=== PATIENT | male | born 1960 | race Caucasian/White ===

== ENCOUNTER → 2016-04-05 | Outpatient (CLI) | payer OTHER ==
[~2016-04-05] VITALS: Ht 172.7 cm; Wt 82.1 kg
[~2016-04-05] MED LIST: ACAM0.05 PO; AMLO10TA PO; CLONI1TA PO; FOLI1TAB2 PO; HYDR25T PO; LIDOCAINE 2% INJ 100 MG/5 ML SDV (FOR ANES.) As Ordered ONE; MELO15TA4 PO; MVI PO; NICO14DI20 TD; NICO21DI5 TD; NO HOME MEDS; NORV5TAB PO; NS 1,000 ML IV SCH; OXAZ15CA PO; PROPOFOL 200 MG/20 ML VIAL As Ordered ONE; SERAX PO; TRAM50TA2 PO; TYLE325T5 PO; Thiamine Hcl PO; VITA100T2 PO; VITMTA PO
--- NOTE | 2016-04-05 08:52 | ROOR ---
Patient Name: Jen Patiño Procedure Date: 04/05/2016 8:32 AM Date of : 1960 Age: 55 Room: [facility] [place] Gender: Male Note Status: Finalized Procedure: Colonoscopy to Cecum Indications: Screening for colorectal malignant neoplasm Providers: Yong Loyola MD Referring MD: COLT STORY NP Requesting Provider: Medicines: Monitored Anesthesia Care Complications: No immediate complications. Procedure: Pre-Anesthesia Assessment: - The heart rate, respiratory rate, oxygen saturations, blood pressure, adequacy of pulmonary ventilation, and response to care were monitored throughout the procedure. The Colonoscope was introduced through the anus and advanced to the cecum, identified by appendiceal orifice and ileocecal valve. The colonoscopy was performed without difficulty. The patient tolerated the procedure well. The quality of the bowel preparation was good. Findings: The perianal and digital rectal examinations were normal. Non-bleeding internal hemorrhoids were found during retroflexion. The hemorrhoids were Grade I (internal hemorrhoids that do not prolapse). No other significant abnormalities were identified in a careful examination of the remainder of the colon. The exam was otherwise without abnormality on direct and retroflexion views. Impression: - Non-bleeding internal hemorrhoids. - The examination was otherwise normal on direct and retroflexion views. - No specimens collected. - The exam was otherwise normal to the cecum. Recommendation: - Patient has a contact number available for emergencies. The signs and symptoms of potential delayed complications were discussed with the patient. Return to normal activities tomorrow. Written discharge instructions were provided to the patient. - Discharge patient to home. - Continue present medications. - Repeat colonoscopy in 10 years for screening purposes. - Return to referring physician. - The findings and recommendations were discussed with the patient's family. Yong Loyola MD Yong Loyola MD 04/05/2016 8:52:25 AM This report has been signed electronically. Number of Addenda: 0 Note Initiated On: 04/05/2016 8:32 AM Estimated Blood Loss: Estimated blood loss: none.
[2016-04-05 09:22] VITALS: BP 114/71
== END ==
LOC: M OPP 07:30
PROVIDERS: ATTEND Internal Medicine Gastroenterology
DX: Z12.11 Encounter for screening for malignant neoplasm of colon (principal); K64.0 First degree hemorrhoids; I10 Essential (primary) hypertension; Z85.828 Personal history of other malignant neoplasm of skin; Z72.0 Tobacco use; Z79.899 Other long term (current) drug therapy

== ENCOUNTER → 2016-06-22 | Outpatient (CLI) | payer OTHER ==
[~2016-06-22] MED LIST changes: -LIDOCAINE 2% INJ 100 MG/5 ML SDV (FOR ANES.) As Ordered ONE; -NS 1,000 ML IV SCH; -PROPOFOL 200 MG/20 ML VIAL As Ordered ONE
== END ==
LOC: M SMT 11:13
PROVIDERS: ATTEND Nurse Practitioner Women's Health
DX: Z12.5 Encounter for screening for malignant neoplasm of prostate (principal); N40.0 Benign prostatic hyperplasia without lower urinary tract symptoms
CPT/HCPCS: 36415; 81001; 87086; G0103

== ENCOUNTER → 2016-08-15 | Outpatient (CLI) | payer OTHER ==
--- NOTE | 2016-08-15 12:28 | REP ---
Clinical: Left testicular pain with history of prior left inguinal repair. Technique: Real time martines scale and color Doppler evaluation using linear high frequency transducer. Findings: Right testicle demonstrates a complex cyst in the lower pole measuring 4.5 mm maximal diameter with small foci of mural calcification. Left testicle appears normal. Left epididymis demonstrates 2.4 mm simple cyst. Right epididymis is normal. Small essentially nonsignificant hydroceles are identified bilaterally. There is a 2.1 cm complex cyst/collection superior to the left testicle in the inguinal canal which may be related to patient's symptoms and is otherwise nonspecific - possibly related to prior inguinal hernia repair. No acute hernia noted. No varicoceles. Right testicle measures 3.8 x 1.9 x 2.8 cm. Left testicle measures 3.4 x 1.8 x 2.8 cm. Impression: 1. With regards to left-sided pain, there is a complex 2.1 cm collection superior to the left testicle in the inguinal canal which may be related to prior inguinal hernia repair and possibly related to patient's symptoms. No other significant left-sided abnormalities are noted. 2. Right testicle demonstrates 4.5 mm complex lower pole intratesticular cyst with mural calcification. 3. And follow-up examination may be warranted for both above findings. Signed by Dieudonne Mobley MD 08/15/2016 12:19 P
== END ==
LOC: M RAD 11:12
PROVIDERS: ATTEND Nurse Practitioner Women's Health
DX: N50.812 Left testicular pain (principal); N50.3 Cyst of epididymis; N44.2 Benign cyst of testis

== ENCOUNTER → 2016-08-24 | Outpatient (CLI) | payer OTHER ==
[~2016-08-24] MED LIST changes: +BACI500O8 TOP; +DOXY100T16 PO; +DRIS50002 PO; +FLOM5CAP PO; +FOLI5INJ2 SC; +HYDR-3713 PO; +SENE8.6T PO; +ZOCO20TA PO
[2016-08-24 14:48] LABS: MEAN CORPUSCULAR HEMOGLOBIN 32.9 pg (27.0-33.0); MEAN CORPUSCULAR HGB CONC 35.2 g/dl (32.0-36.5); MEAN CORPUSCULAR VOLUME 93.4 fl (80.0-96.0); RED CELL DISTRIBUTION WIDTH 11.8 % (11.5-14.5); WHITE BLOOD COUNT 10.5 K/mm3 (4.0-10.0)
[2016-08-24 14:58] LABS: ANION GAP 8 MEQ/L (8-16); BLOOD UREA NITROGEN 14 MG/DL (7-18); CALCIUM LEVEL 8.6 MG/DL (8.5-10.1); CARBON DIOXIDE LEVEL 25 MEQ/L (21-32); CHLORIDE LEVEL 105 MEQ/L (98-107); CREATININE FOR GFR 0.84 MG/DL (0.70-1.30); GLOMERULAR FILTRATION RATE > 60.0 (>56); GLUCOSE, FASTING 89 MG/DL (70-105); POTASSIUM SERUM 4.5 MEQ/L (3.5-5.1); SODIUM LEVEL 138 MEQ/L (136-145)
== END ==
LOC: M LAB 13:50
PROVIDERS: ATTEND Podiatrist Foot & Ankle Surgery
DX: Z01.812 Encounter for preprocedural laboratory examination (principal)

== ENCOUNTER → 2016-09-05 | Outpatient (CLI) | payer OTHER ==
--- NOTE | 2016-09-05 16:31 | ECGEPIP ---
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
--- NOTE | 2016-09-06 05:23 | REP ---
Clinical: Chest pain with family history of heart disease. Technique: PA and lateral. Comparison: 09/23/2014. Findings: 12 mm density in the mid/lower left lung zone midclavicular line likely represents asymmetric nipple shadow. The lung hanley are otherwise stable and without acute consolidation, effusion, or pneumothorax. Mediastinum and cardiac silhouette normal. Skeletal structures demonstrate age-related degenerative changes and evidence for prior bilateral shoulder surgery. Impression: 1. Likely 12 mm left asymmetric nipple shadow less likely representing nodule. Consider reevaluation with nipple markers if necessary. 2. Further chronic changes without acute process. Signed by Dieudonne Mobley MD 09/06/2016 05:14 A
== END ==
LOC: M EKG 15:10
PROVIDERS: ATTEND Nurse Practitioner Adult Health
DX: Z82.49 Family history of ischemic heart disease and other diseases of the circulatory system (principal); R91.8 Other nonspecific abnormal finding of lung field; R00.0 Tachycardia, unspecified; R94.31 Abnormal electrocardiogram [ECG] [EKG]

== ENCOUNTER 2017-02-16 11:40 | Day surgery (SDC) | payer OTHER ==
[~2017-02-16] VITALS: Ht 172.7 cm; Wt 81.2 kg
[~2017-02-16 11:40] MED LIST changes: -FOLI1TAB2 PO; +FOLI1TAB4 PO; +HYDR-3363 PO; -HYDR25T PO; -OXAZ15CA PO; +OXAZ15CA4 PO
[2017-02-16] MEDS ORDERED: LR 1,000 ML IV ONE (12:00)
[2017-02-16] MEDS ORDERED: LIDOCAINE 1% SDV 5 ML VIAL SQ ONE (12:00)
[2017-02-16] MEDS ORDERED: BUPIVACAINE/EPIN 0.25% 30 ML VIAL As Ordered ONE (12:35)
[2017-02-16] MEDS ORDERED: PROPOFOL 200 MG/20 ML VIAL As Ordered ONE (13:16)
[2017-02-16] MEDS ORDERED: LIDOCAINE 2% INJ 100 MG/5 ML SDV (FOR ANES.) As Ordered ONE (13:16)
[2017-02-16] MEDS ORDERED: fentaNYL 250 MCG/5 ML INJECTION (J3010) As Ordered ONE (13:16)
[2017-02-16] MEDS ORDERED: MIDAZOLAM INJ 2 MG/2 ML VIAL (J2250) As Ordered ONE (13:16)
[2017-02-16] MEDS ORDERED: ROCURONIUM BROMIDE 50 MG/5 ML VIAL/SYRINGE As Ordered ONE ×2 (13:16→13:46)
[2017-02-16] MEDS ORDERED: GLYCOPYRROLATE INJ 0.2 MG/ML 2 ML VIAL As Ordered ONE (13:36)
[2017-02-16] MEDS ORDERED: NEOSTIGMINE 10 MG/10 ML VIAL (J2710) As Ordered ONE (13:36)
[2017-02-16] MEDS ORDERED: KETOROLAC 60 MG/2 ML VIAL (J1885) As Ordered ONE (13:37)
[2017-02-16] MEDS ORDERED: ONDANSETRON 4MG/2ML VIAL (J2405) As Ordered ONE (13:37)
[2017-02-16] MEDS ORDERED: DESFLURANE 240 ML INHALANT As Ordered ONE (14:38)
[2017-02-16] MEDS: fentaNYL 100 MCG/2 ML INJECTION (J3010) IV PRN ×4 (15:05→15:20)
[2017-02-16] MEDS ORDERED: fentaNYL 100 MCG/2 ML INJECTION (J3010) As Ordered ONE (15:06)
[2017-02-16] MEDS ORDERED: MEPERIDINE INJ 25 MG/ML VIAL (J2175) IV PRN (15:30)
[2017-02-16] MEDS ORDERED: ONDANSETRON 4MG/2ML VIAL (J2405) IV PRN (15:30)
[2017-02-16] MEDS ORDERED: LR 1,000 ML IV SCH (15:30)
[2017-02-16] MEDS ORDERED: NORCO, ANEXSIA 5/325MG TABLET (HYDROcodone/ACETAMINOPHEN) PO PRN (15:30)
[2017-02-16] MEDS: PERCOCET 5MG/325MG TAB PO PRN ×2 (15:37→16:05)
[2017-02-16] MEDS ORDERED: oxyCODONE 5MG TAB As Ordered ONE (18:14)
[2017-02-16] MEDS: oxyCODONE 5MG TAB PO SCH ×2 (18:15→18:41)
[2017-02-16 19:00] VITALS: BP 140/82
--- NOTE | 2017-02-16 19:21 | RO ---
DATE OF PROCEDURE: 02/16/2017 PREOPERATIVE DIAGNOSIS: Right inguinal hernia. POSTOPERATIVE DIAGNOSIS: Right inguinal hernia. OPERATIVE PROCEDURE: Robotic assisted right inguinal hernia repair. SURGEON: Landon Ortiz MD SETTLEMENT WORKER: Nicole Cheung ANESTHESIA: General. ESTIMATED BLOOD LOSS: 10 mL COMPLICATIONS: None. INDICATIONS FOR PROCEDURE: The patient 56-year-old male who presents with a large right inguinal hernia. Recommendation to proceed with robotic assisted right inguinal hernia repair. Risks, benefits of the procedure not limited to but including bleeding, infection, hernia formation, hernia recurrence, damage to surrounding structures and possible need for further surgery were discussed in detail with the patient and informed was obtained and the procedure was planned. DESCRIPTION OF PROCEDURE: The patient was brought back to operating room 7 and after sufficient sedation the abdomen was sterilely prepped and draped and a Cardoso catheter was placed. Next a time-out was done to confirm proper patient and proper procedure. Next, an 8 mm supraumbilical incision was made. Veress needle was then inserted and the abdomen was insufflated to 15 mmHg. Veress needle was removed. A 5 mm OptiVu port was used to gain access to the abdomen. Once the abdomen was entered, two 8 mm robotic ports were placed in the left and right midabdomen. A 5 mm OptiVu port was then removed, replaced with an 8 mm camera port. The patient was placed in Trendelenburg position. Robot was docked to the ports and instruments were placed. Next from the console, peritoneum was incised in the right lower quadrant. Cecal adhesions to the area were all carefully dissected free and the cecum was moved down out of the way. After doing so the preperitoneal space was dissected free both medially, laterally and posteriorly. The hernia sac was freed up completely from all the cord structures and after doing so there was a large lipoma that was identified. This was carefully dissected free from the cord structures as well and mobilized outside of the peritoneum. Due to its large stalk and large blood supply it had to be left in place and could not be completely removed. A Bard 3-D Max medium size mesh was then placed behind this large lipoma covering the inguinal canal and the hernia. It was sutured to the midline into the pubic symphysis using a Vicryl suture. The peritoneum was then closed incorporating this large lipoma into the closure using a running V-Loc suture. Once this is all completed, the needle was removed, abdomen was desufflated, ports were removed. The incisions were closed with #4-0 Vicryl subcuticular sutures. The abdomen was cleaned and dried. Steri-Strips, 4x4 and tape were applied thus ending procedure.
== END 2017-02-16 19:02 | disposition home or self-care (01) ==
LOC: M SDC 11:40
PROVIDERS: ATTEND Surgery
DX: K40.90 Unilateral inguinal hernia, without obstruction or gangrene, not specified as recurrent (principal); I10 Essential (primary) hypertension; F17.210 Nicotine dependence, cigarettes, uncomplicated; Z79.899 Other long term (current) drug therapy; F41.9 Anxiety disorder, unspecified; F32.9 Major depressive disorder, single episode, unspecified; Z88.8 Allergy status to other drugs, medicaments and biological substances
CPT/HCPCS: 49650; C1781

== ENCOUNTER → 2017-09-14 | Outpatient (CLI) | payer OTHER | LOC: M SMT 11:28 | DX: N50.812 Left testicular pain (principal); N50.3 Cyst of epididymis; N43.3 Hydrocele, unspecified | CPT/HCPCS: 76870 ==

== ENCOUNTER → 2017-09-24 | Outpatient (CLI) | payer OTHER ==
[2017-09-24 14:24] LABS: PSA SCREENING 0.32 NG/ML (< 4.0)
[2017-09-25 14:46] LABS: TESTOSTERONE FREE (DIRECT) 4.9 pg/mL (7.2-24.0)
== END ==
LOC: M SMT 09:12
DX: N52.9 Male erectile dysfunction, unspecified (principal); R53.83 Other fatigue; Z12.5 Encounter for screening for malignant neoplasm of prostate
CPT/HCPCS: 84403

== ENCOUNTER → 2017-10-10 | Outpatient (REF) | payer OTHER | LOC: M SFHCPLAZ 13:27 | DX: F10.11 Alcohol abuse, in remission (principal) | CPT/HCPCS: 80307 ==

== ENCOUNTER → 2017-10-17 | Outpatient (CLI) | payer OTHER ==
[2017-10-17 13:48] LABS: BASO # 0.1 10^3/uL (0.0-0.2); EOS # 0.2 10^3/uL (0.0-0.50); EOS % 2.7 % (0.0-3.0); HEMATOCRIT 47.7 % (42.0-52.0); HEMOGLOBIN 16.8 g/dl (13.5-17.5); IMMATURE GRANULOCYTE % 0.4 % (0-3.0); LYMPH # 2.9 10^3/uL (1.5-4.5); LYMPH % 35.2 % (24.0-44.0); MEAN CORPUSCULAR HEMOGLOBIN 32.1 pg (27.0-33.0); MEAN CORPUSCULAR HGB CONC 35.2 g/dl (32.0-36.5); MEAN CORPUSCULAR VOLUME 91.2 fl (80.0-96.0); MONO # 0.6 10^3/uL (0.0-0.8); MONO % 7.5 % (0.0-5.0); NEUTROPHILS # 4.3 10^3/uL (1.8-7.7); NEUTROPHILS % 53.2 % (36.0-66.0); PLATELET COUNT, AUTOMATED 257 10^3/uL (150-450); RED BLOOD COUNT 5.23 10^6/uL (4.30-6.10); RED CELL DISTRIBUTION WIDTH 11.7 % (11.5-14.5); WHITE BLOOD COUNT 8.1 10^3/uL (4.0-10.0)
[2017-10-17 13:58] LABS: AMORPHOUS SEDIMENT LARGE (NEGATIVE); APPEARANCE, URINE TURBID (CLEAR); BACTERIA, URINE AUTO NEGATIVE (NEGATIVE); BILIRUBIN, URINE AUTO NEGATIVE (NEGATIVE); BLOOD, URINE BLOOD NEGATIVE (NEGATIVE); COLOR, URINE YELLOW (YELLOW); GLUCOSE, URINE (UA) AUTO NEGATIVE (NEGATIVE); KETONE, URINE AUTO NEGATIVE (NEGATIVE); LEUKOCYTE ESTERASE, URINE AUTO NEGATIVE (NEGATIVE); NITRITE, URINE AUTO NEGATIVE (NEGATIVE); PROTEIN, URINE AUTO NEGATIVE (NEGATIVE); RBC, URINE AUTO 0 /HPF (0-3); SPECIFIC GRAVITY URINE AUTO 1.023 (1.002-1.035); SQUAMOUS EPITHELIAL CELL UR AU 0 /HPF (0-6); UROBILINOGEN, URINE AUTO 0.2 mg/dL (0.0-2.0); WBC, URINE AUTO 0 /HPF (0-3)
[2017-10-17 14:11] LABS: ESTIMATED AVERAGE GLUCOSE 123 MG/DL (60-110); HEMOGLOBIN A1c 5.9 %
[2017-10-17 14:22] LABS: MALB URINE SIEMENS 17.9 MG/L; MAU/CREAT RATIO 7.5 MCG/MG (0.0-30.0)
[2017-10-17 14:26] LABS: ALBUMIN 4.4 GM/DL (3.2-5.2); ALBUMIN/GLOBULIN RATIO 1.19 (1.00-1.93); ALKALINE PHOSPHATASE 81 U/L (45-117); ALT/SGPT 40 U/L (12-78); ANION GAP 11 MEQ/L (8-16); AST/SGOT 29 U/L (7-37); BILIRUBIN,TOTAL 1.4 MG/DL (0.2-1.0); BLOOD UREA NITROGEN 17 MG/DL (7-18); CALCIUM LEVEL 8.6 MG/DL (8.5-10.1); CARBON DIOXIDE LEVEL 25 MEQ/L (21-32); CHLORIDE LEVEL 99 MEQ/L (98-107); CHOLESTEROL LEVEL 219 MG/DL (<200); CHOLESTEROL RISK RATIO 5.214 (<5); GLOMERULAR FILTRATION RATE > 60.0 (>56); GLUCOSE, FASTING 97 MG/DL (70-100); HDL CHOLESTEROL 42 MG/DL (>40); LDL CHOLESTEROL 137.2 MG/DL (<100); MAGNESIUM LEVEL 2.4 MG/DL (1.8-2.4); NON-HDL-C 177 MG/DL; POTASSIUM SERUM 4.1 MEQ/L (3.5-5.1); SODIUM LEVEL 135 MEQ/L (136-145); TOTAL PROTEIN 8.1 GM/DL (6.4-8.2); TRIGLYCERIDES LEVEL 199 MG/DL (<150)
[2017-10-17 16:17] LABS: TOTAL 25(OH) VITAMIN D 33.8 NG/ML (30.0-100.0); VITAMIN B12 LEVEL 617 PG/ML
[2017-10-17 16:18] LABS: FOLATE 12.8 NG/ML
[2017-10-18 08:07] LABS: URINE ETHANOL 1 Negative % (Cutoff=0.020)
== END ==
LOC: M SMT 10:22
DX: I10 Essential (primary) hypertension (principal); F10.11 Alcohol abuse, in remission; E78.5 Hyperlipidemia, unspecified; E55.9 Vitamin D deficiency, unspecified
CPT/HCPCS: 82746

== ENCOUNTER → 2017-11-08 | Outpatient (CLI) | payer OTHER | LOC: M SLEEP HO 09:00 | DX: G47.33 Obstructive sleep apnea (adult) (pediatric) (principal) | CPT/HCPCS: G0399 ==

== ENCOUNTER → 2017-11-19 | Outpatient (CLI) | payer OTHER ==
[2017-11-19 17:24] LABS: ANION GAP 11 MEQ/L (8-16); BLOOD UREA NITROGEN 22 MG/DL (7-18); CALCIUM LEVEL 8.4 MG/DL (8.5-10.1); CARBON DIOXIDE LEVEL 22 MEQ/L (21-32); CHLORIDE LEVEL 104 MEQ/L (98-107); CREATININE FOR GFR 0.88 MG/DL (0.70-1.30); GLOMERULAR FILTRATION RATE > 60.0 (>56); GLUCOSE, FASTING 130 MG/DL (70-100); HEMATOCRIT 42.1 % (42.0-52.0); HEMOGLOBIN 14.4 g/dl (13.5-17.5); MEAN CORPUSCULAR HEMOGLOBIN 31.7 pg (27.0-33.0); MEAN CORPUSCULAR HGB CONC 34.2 g/dl (32.0-36.5); MEAN CORPUSCULAR VOLUME 92.7 fl (80.0-96.0); PLATELET COUNT, AUTOMATED 254 10^3/uL (150-450); POTASSIUM SERUM 4.2 MEQ/L (3.5-5.1); RED BLOOD COUNT 4.54 10^6/uL (4.30-6.10); RED CELL DISTRIBUTION WIDTH 11.6 % (11.5-14.5); SODIUM LEVEL 137 MEQ/L (136-145); WHITE BLOOD COUNT 8.3 10^3/uL (4.0-10.0)
[2017-11-19 17:44] LABS: INR 0.97
[2017-11-19 17:45] LABS: PARTIAL THROMBOPLASTIN TIME 31.8 SECONDS (25.4-37.6)
[2017-11-20 09:14] LABS: APPEARANCE, URINE TURBID (CLEAR); BACTERIA, URINE AUTO NEGATIVE (NEGATIVE); BILIRUBIN, URINE AUTO NEGATIVE (NEGATIVE); BLOOD, URINE BLOOD NEGATIVE (NEGATIVE); COLOR, URINE AMBER (YELLOW); GLUCOSE, URINE (UA) AUTO NEGATIVE (NEGATIVE); KETONE, URINE AUTO 1+ mg/dL (NEGATIVE); LEUKOCYTE ESTERASE, URINE AUTO NEGATIVE (NEGATIVE); MUCUS, URINE LARGE (NEGATIVE); NITRITE, URINE AUTO NEGATIVE (NEGATIVE); PROTEIN, URINE AUTO NEGATIVE (NEGATIVE); RBC, URINE AUTO 1 /HPF (0-3); SPECIFIC GRAVITY URINE AUTO 1.026 (1.002-1.035); SQUAMOUS EPITHELIAL CELL UR AU 0 /HPF (0-6); WBC, URINE AUTO 1 /HPF (0-3)
== END ==
LOC: M SMT 10:26
DX: N52.9 Male erectile dysfunction, unspecified (principal)
CPT/HCPCS: 80048

== ENCOUNTER 2017-11-28 07:09 | Day surgery (SDC) | payer OTHER ==
[~2017-11-28 07:09] MED LIST changes: -ACAM0.05 PO; -AMLO10TA PO; -BACI500O8 TOP; -CLONI1TA PO; -DOXY100T16 PO; -DRIS50002 PO; -FLOM5CAP PO; -FOLI1TAB4 PO; -FOLI5INJ2 SC; +GENTAMICIN 100 MG in APPROPRIATE DILUENT 1 EA IV; -HYDR-3363 PO; -HYDR-3713 PO; -MELO15TA4 PO; -MVI PO; -NICO14DI20 TD; -NICO21DI5 TD; -NO HOME MEDS; -NORV5TAB PO; -OXAZ15CA4 PO; -SENE8.6T PO; -SERAX PO; -TRAM50TA2 PO; -TYLE325T5 PO; -Thiamine Hcl PO; -VITA100T2 PO; -VITMTA PO; -ZOCO20TA PO
[2017-11-28] MEDS: LR 1,000 ML IV (07:57)
[2017-11-28] MEDS: VANCOMYCIN HCL 1,000 MG, VIAL MATE ADAPTER 1 EACH in D5W 250 ML IV (07:58)
[2017-11-28] MEDS ORDERED: LIDOCAINE 2% INJ 100 MG/5 ML SDV (FOR ANES.) As Ordered (08:01)
[2017-11-28] MEDS ORDERED: PROPOFOL 200 MG/20 ML VIAL As Ordered (08:01)
[2017-11-28] MEDS ORDERED: fentaNYL 250 MCG/5 ML INJECTION (J3010) As Ordered (08:02)
[2017-11-28] MEDS ORDERED: MIDAZOLAM INJ 2 MG/2 ML VIAL (J2250) As Ordered (08:02)
[2017-11-28] MEDS ORDERED: ROCURONIUM BROMIDE 50 MG/5 ML VIAL As Ordered (08:07)
[2017-11-28] MEDS ORDERED: ePHEDrine SULFATE 25 MG/5 ML(5MG/ML) SYRINGE As Ordered (08:58)
[2017-11-28] MEDS: GENTAMICIN 100 MG in APPROPRIATE DILUENT 1 EA IV (09:20)
[2017-11-28] MEDS ORDERED: ONDANSETRON 4MG/2ML VIAL (J2405) As Ordered (09:39)
[2017-11-28] MEDS ORDERED: GLYCOPYRROLATE INJ 0.2 MG/ML 2 ML VIAL As Ordered (09:39)
[2017-11-28] MEDS ORDERED: KETOROLAC 60 MG/2 ML VIAL (J1885) As Ordered (09:39)
[2017-11-28] MEDS ORDERED: NEOSTIGMINE 10 MG/10 ML VIAL (J2710) As Ordered (09:39)
[2017-11-28] MEDS ORDERED: dexameTHASONE 4 MG/ML 1ML VIAL (J1100) As Ordered ×2 (09:39)
[2017-11-28] MEDS: BACTRIM IV 160MG-800MG/10ML VIAL (S0039) XX ×2 (09:47→09:48)
[2017-11-28] MEDS: BACITRACIN OINT 30GM As Ordered (09:48)
[2017-11-28] MEDS ORDERED: ONDANSETRON 4MG/2ML VIAL (J2405) IV (10:45)
[2017-11-28] MEDS ORDERED: fentaNYL 100 MCG/2 ML INJECTION (J3010) IV (10:45)
[2017-11-28] MEDS ORDERED: NORCO, ANEXSIA 5/325MG TABLET (HYDROcodone/ACETAMINOPHEN) PO (10:45)
[2017-11-28] MEDS ORDERED: LR 1,000 ML IV (10:45)
[2017-11-28] MEDS: PERCOCET 5MG/325MG TAB PO ×2 (10:47→12:00)
[2017-11-28] MEDS ORDERED: BACTRIM 160MG/800MG DS TAB PO (21:00)
== END 2017-11-28 13:22 | disposition home or self-care (01) ==
LOC: M SDC 07:09
DX: N52.9 Male erectile dysfunction, unspecified (principal); I12.9 Hypertensive chronic kidney disease with stage 1 through stage 4 chronic kidney disease, or unspecified chronic kidney disease; M12.9 Arthropathy, unspecified; R29.898 Other symptoms and signs involving the musculoskeletal system; R06.83 Snoring; F10.21 Alcohol dependence, in remission; G47.33 Obstructive sleep apnea (adult) (pediatric); N40.0 Benign prostatic hyperplasia without lower urinary tract symptoms; N18.3 Chronic kidney disease, stage 3 (moderate); E78.5 Hyperlipidemia, unspecified; Z91.041 Radiographic dye allergy status; Z91.048 Other nonmedicinal substance allergy status; Z79.899 Other long term (current) drug therapy; Z86.19 Personal history of other infectious and parasitic diseases; Z85.828 Personal history of other malignant neoplasm of skin; Z87.891 Personal history of nicotine dependence
CPT/HCPCS: 54405

== ENCOUNTER → 2017-12-07 | Outpatient (REF) | payer OTHER ==
[2017-12-07 19:22] LABS: ALBUMIN 3.8 GM/DL (3.2-5.2); ALBUMIN/GLOBULIN RATIO 1.12 (1.00-1.93); ALKALINE PHOSPHATASE 87 U/L (45-117); ALT/SGPT 28 U/L (12-78); ANION GAP 11 MEQ/L (8-16); AST/SGOT 20 U/L (7-37); BILIRUBIN,TOTAL 0.8 MG/DL (0.2-1.0); BLOOD UREA NITROGEN 9 MG/DL (7-18); CALCIUM LEVEL 8.3 MG/DL (8.5-10.1); CARBON DIOXIDE LEVEL 23 MEQ/L (21-32); CHLORIDE LEVEL 105 MEQ/L (98-107); CREATININE FOR GFR 0.68 MG/DL (0.70-1.30); FREE T4 0.99 NG/DL (0.76-1.46); GLOMERULAR FILTRATION RATE > 60.0 (>56); GLUCOSE, FASTING 76 MG/DL (70-100); POTASSIUM SERUM 4.8 MEQ/L (3.5-5.1); SODIUM LEVEL 139 MEQ/L (136-145); TOTAL PROTEIN 7.2 GM/DL (6.4-8.2)
[2017-12-07 19:44] LABS: BASO # 0.1 10^3/uL (0.0-0.2); BASO % 1.1 % (0.0-1.0); EOS # 0.2 10^3/uL (0.0-0.50); EOS % 1.9 % (0.0-3.0); HEMATOCRIT 35.9 % (42.0-52.0); HEMOGLOBIN 12.4 g/dl (13.5-17.5); IMMATURE GRANULOCYTE % 0.6 % (0-3.0); LYMPH # 2.5 10^3/uL (1.5-4.5); LYMPH % 24.5 % (24.0-44.0); MEAN CORPUSCULAR HEMOGLOBIN 32.2 pg (27.0-33.0); MEAN CORPUSCULAR HGB CONC 34.5 g/dl (32.0-36.5); MEAN CORPUSCULAR VOLUME 93.2 fl (80.0-96.0); MONO # 1.2 10^3/uL (0.0-0.8); MONO % 11.6 % (0.0-5.0); NEUTROPHILS # 6.1 10^3/uL (1.8-7.7); NEUTROPHILS % 60.3 % (36.0-66.0); PLATELET COUNT, AUTOMATED 390 10^3/uL (150-450); RED BLOOD COUNT 3.85 10^6/uL (4.30-6.10); RED CELL DISTRIBUTION WIDTH 12.3 % (11.5-14.5); WHITE BLOOD COUNT 10.1 10^3/uL (4.0-10.0)
== END ==
LOC: M LAB REF 17:26
DX: G47.33 Obstructive sleep apnea (adult) (pediatric) (principal)

== ENCOUNTER → 2017-12-14 | Outpatient (CLI) | payer OTHER | LOC: M RAD 14:06 | DX: R60.0 Localized edema (principal) | CPT/HCPCS: 93970 ==

== ENCOUNTER → 2017-12-19 | Outpatient (REF) | LOC: M SMT 11:34 | DX: Z00.00 Encounter for general adult medical examination without abnormal findings (principal) ==

== ENCOUNTER → 2017-12-20 | Outpatient (CLI) | payer OTHER | LOC: M RAD 08:47 | DX: Z12.2 Encounter for screening for malignant neoplasm of respiratory organs (principal); F17.218 Nicotine dependence, cigarettes, with other nicotine-induced disorders | CPT/HCPCS: G0297 ==

== ENCOUNTER → 2017-12-30 | Outpatient (CLI) | payer OTHER | LOC: M SLEEP 20:00 | DX: G47.33 Obstructive sleep apnea (adult) (pediatric) (principal) | CPT/HCPCS: 95811 ==

== ENCOUNTER → 2018-01-08 | Outpatient (CLI) | payer OTHER ==
[2018-01-08 12:31] LABS: HEMATOCRIT 39.4 % (42.0-52.0); HEMOGLOBIN 13.2 g/dl (13.5-17.5); MEAN CORPUSCULAR HGB CONC 33.5 g/dl (32.0-36.5); MEAN CORPUSCULAR VOLUME 95.4 fl (80.0-96.0); PLATELET COUNT, AUTOMATED 379 10^3/uL (150-450); RED BLOOD COUNT 4.13 10^6/uL (4.30-6.10); RED CELL DISTRIBUTION WIDTH 12.8 % (11.5-14.5); WHITE BLOOD COUNT 9.1 10^3/uL (4.0-10.0)
[2018-01-08 12:47] LABS: INR 0.97
[2018-01-08 13:07] LABS: ALBUMIN 3.7 GM/DL (3.2-5.2); ALBUMIN/GLOBULIN RATIO 1.03 (1.00-1.93); ALKALINE PHOSPHATASE 96 U/L (45-117); ALT/SGPT 34 U/L (12-78); ANION GAP 7 MEQ/L (8-16); AST/SGOT 26 U/L (7-37); BILIRUBIN,TOTAL 0.5 MG/DL (0.2-1.0); BLOOD UREA NITROGEN 10 MG/DL (7-18); CALCIUM LEVEL 7.9 MG/DL (8.5-10.1); CARBON DIOXIDE LEVEL 26 MEQ/L (21-32); CHLORIDE LEVEL 106 MEQ/L (98-107); CREATININE FOR GFR 0.65 MG/DL (0.70-1.30); GLOMERULAR FILTRATION RATE > 60.0 (>56); GLUCOSE, FASTING 88 MG/DL (70-100); POTASSIUM SERUM 4.8 MEQ/L (3.5-5.1); SODIUM LEVEL 139 MEQ/L (136-145); TOTAL PROTEIN 7.3 GM/DL (6.4-8.2)
[2018-01-08 13:14] LABS: ERYTHROCYTE SEDIMENTATION RATE 26 mm/hr (0-20)
== END ==
LOC: M LAB 11:04
DX: Z01.818 Encounter for other preprocedural examination (principal); M17.11 Unilateral primary osteoarthritis, right knee; R94.31 Abnormal electrocardiogram [ECG] [EKG]
CPT/HCPCS: 71046

== ENCOUNTER → 2018-05-02 | Outpatient (RCR) | payer MEDICAID ==
[~2018-05-02] MED LIST changes: +ACAM0.05 PO; +AMLO10TA PO; +AMLO25TA PO; +ATOR40TA75 PO; +BACI500O8 TOP; +CLONI1TA PO; +DOXY100T16 PO; +DRIS50003 PO; +FLOM0.4C39 PO; +FOLI1TAB11 PO; +FOLI5INJ2 SC; +GABA-1171 PO; -GENTAMICIN 100 MG in APPROPRIATE DILUENT 1 EA IV; +HYDR-3363 PO; +HYDR-3713 PO; +IBUP-1022 PO; +MELO15TA28 PO; +MVI PO; +NICO14DI20 TD; +NICO21DI6 TD; +NO HOME MEDS; +NORV5TAB PO; +OXAZ15CA4 PO; +SENE8.6T PO; +SERAX PO; +TRAM50TA2 PO; +TYLE325T5 PO; +Thiamine Hcl PO; +VITA100T8 PO; +VITMTA PO; +ZOCO20TA PO
== END ==
LOC: M OUTALCOH 04-15 13:01
PROVIDERS: ATTEND Psychiatry & Neurology Psychiatry
DX: F10.20 Alcohol dependence, uncomplicated (principal)

== ENCOUNTER → 2018-05-30 | Outpatient (RCR) | payer MEDICAID | LOC: M OUTALCOH 05-09 15:19 | PROVIDERS: ATTEND Psychiatry & Neurology Psychiatry | DX: F10.20 Alcohol dependence, uncomplicated (principal) ==

== ENCOUNTER 2018-06-27 16:00 | Outpatient (RCR) | payer MEDICAID | END 2018-06-30 | LOC: M OUTALCOH 16:00 | PROVIDERS: ATTEND Psychiatry & Neurology Psychiatry | DX: F10.20 Alcohol dependence, uncomplicated (principal) ==

== ENCOUNTER 2018-07-29 16:00 | Outpatient (RCR) | payer MEDICAID ==
[~2018-07-29 16:00] MED LIST changes: -SENE8.6T PO; +SENN1TAB38 PO
== END 2018-07-30 ==
LOC: M OUTALCOH 16:00
PROVIDERS: ATTEND Psychiatry & Neurology Psychiatry
DX: F10.10 Alcohol abuse, uncomplicated (principal)

== ENCOUNTER 2018-08-19 16:00 | Outpatient (RCR) | payer MEDICAID | END 2018-08-30 | LOC: M OUTALCOH 16:00 | PROVIDERS: ATTEND Psychiatry & Neurology Psychiatry | DX: F10.10 Alcohol abuse, uncomplicated (principal) ==

== ENCOUNTER 2018-09-25 12:00 | Outpatient (RCR) | payer MEDICARE, MEDICAID | END 2018-09-29 | LOC: M OUTALCOH 12:00 | PROVIDERS: ATTEND Psychiatry & Neurology Psychiatry | DX: F10.10 Alcohol abuse, uncomplicated (principal) ==

== ENCOUNTER 2018-10-25 12:59 | Outpatient (RCR) | payer MEDICARE, MEDICAID | END 2018-10-30 | LOC: M OUTALCOH 12:59 | PROVIDERS: ATTEND Psychiatry & Neurology Psychiatry | DX: F10.10 Alcohol abuse, uncomplicated (principal) | CPT/HCPCS: 90834; H0050 ==

== ENCOUNTER → 2018-10-25 | Outpatient (CLI) | payer MEDICARE, MEDICAID ==
[2018-10-25 18:12] LABS: BASO # 0.1 10^3/uL (0.0-0.2); BASO % 0.6 % (0.0-1.0); EOS # 0.6 10^3/uL (0.0-0.50); EOS % 6.7 % (0.0-3.0); HEMATOCRIT 43.8 % (42.0-52.0); HEMOGLOBIN 14.8 g/dl (13.5-17.5); LYMPH # 2.6 10^3/uL (1.5-4.5); LYMPH % 30.5 % (24.0-44.0); MEAN CORPUSCULAR HEMOGLOBIN 32.5 pg (27.0-33.0); MEAN CORPUSCULAR HGB CONC 33.8 g/dl (32.0-36.5); MEAN CORPUSCULAR VOLUME 96.1 fl (80.0-96.0); MONO # 0.7 10^3/uL (0.0-0.8); MONO % 8.6 % (0.0-5.0); NEUTROPHILS # 4.5 10^3/uL (1.8-7.7); NEUTROPHILS % 53.4 % (36.0-66.0); PLATELET COUNT, AUTOMATED 263 10^3/uL (150-450); RED BLOOD COUNT 4.56 10^6/uL (4.30-6.10); WHITE BLOOD COUNT 8.5 10^3/uL (4.0-10.0)
[2018-10-25 18:21] LABS: ALT/SGPT 31 U/L (12-78); BILIRUBIN,TOTAL 0.7 MG/DL (0.2-1.0); BLOOD UREA NITROGEN 20 MG/DL (7-18); CALCIUM LEVEL 8.5 MG/DL (8.5-10.1); CARBON DIOXIDE LEVEL 27 MEQ/L (21-32); CHLORIDE LEVEL 104 MEQ/L (98-107); CHOLESTEROL LEVEL 179 MG/DL (<200); CHOLESTEROL RISK RATIO 5.424 (<5); CREATININE FOR GFR 0.76 MG/DL (0.70-1.30); GLOMERULAR FILTRATION RATE > 60.0 (>56); GLUCOSE, FASTING 77 MG/DL (70-100); HDL CHOLESTEROL 33 MG/DL (>40); LDL CHOLESTEROL 82 MG/DL (<100); MAGNESIUM LEVEL 2.1 MG/DL (1.8-2.4); NON-HDL-C 146 MG/DL; POTASSIUM SERUM 4.5 MEQ/L (3.5-5.1); SODIUM LEVEL 137 MEQ/L (136-145); TOTAL PROTEIN 7.2 GM/DL (6.4-8.2); TRIGLYCERIDES LEVEL 319 MG/DL (<150)
[2018-10-25 18:26] LABS: TOTAL 25(OH) VITAMIN D 13.8 NG/ML (30.0-100.0)
[2018-10-25 18:51] LABS: HEMOGLOBIN A1c 6.7 %
== END ==
LOC: M SMT 14:18
PROVIDERS: ATTEND Nurse Practitioner Family
DX: I10 Essential (primary) hypertension (principal); R73.01 Impaired fasting glucose; E78.5 Hyperlipidemia, unspecified; E55.9 Vitamin D deficiency, unspecified

== ENCOUNTER 2019-02-24 13:05 | Outpatient (RCR) | payer MEDICAID, MEDICARE | END 2019-03-01 | LOC: M PT 13:05 | PROVIDERS: ATTEND Nurse Practitioner Family | DX: M54.5 Low back pain (principal); M17.11 Unilateral primary osteoarthritis, right knee ==

== ENCOUNTER → 2019-02-24 | Outpatient (CLI) | payer MEDICARE ==
[~2019-02-24] MED LIST changes: -DOXY100T16 PO; +DOXY100T27 PO
--- NOTE | 2019-02-24 14:05 | REP ---
Lumbar spine series: Five views. History: Low back pain. Findings: Lumbar vertebral body heights are preserved. Alignment is normal. Pedicles and posterior elements are intact. There is no evidence of spondylolysis or spondylolisthesis. There are advanced degenerative disc disease changes most pronounced at L2-3 and L1-2 but present to some degree at each lumbar level. No bony destructive lesion is seen. Psoas margins are symmetric. Sacrum and SI joints are intact. There is osteoarthritic hip disease bilaterally. Impression: Degenerative disc and osteoarthritic facet changes. Osteoarthritis of the hips. No acute bony abnormality. Electronically Signed by Destin Chase MD 02/24/2019 03:03 P
== END ==
LOC: M RAD 12:19
PROVIDERS: ATTEND Nurse Practitioner Family
DX: M54.5 Low back pain (principal)

== ENCOUNTER → 2019-05-27 | Outpatient (CLI) | payer MEDICARE, MEDICAID ==
[2019-05-27 13:24] LABS: BASO # 0.1 10^3/uL (0.0-0.2); BASO % 1.7 % (0.0-1.0); EOS # 0.2 10^3/uL (0.0-0.5); EOS % 2.3 % (0.0-3.0); HEMATOCRIT 45.9 % (42.0-52.0); HEMOGLOBIN 15.3 g/dl (13.5-17.5); LYMPH # 2.6 10^3/uL (1.5-5.0); LYMPH % 31.4 % (24.0-44.0); MEAN CORPUSCULAR HEMOGLOBIN 32.6 pg (27.0-33.0); MEAN CORPUSCULAR HGB CONC 33.3 g/dl (32.0-36.5); MEAN CORPUSCULAR VOLUME 97.7 fl (80.0-96.0); MONO # 0.8 10^3/uL (0.0-0.8); MONO % 9.8 % (0.0-5.0); NEUTROPHILS # 4.4 10^3/uL (1.5-8.5); NEUTROPHILS % 54.6 % (36.0-66.0); PLATELET COUNT, AUTOMATED 356 10^3/uL (150-450); WHITE BLOOD COUNT 8.1 10^3/uL (4.0-10.0)
[2019-05-27 13:57] LABS: HEMOGLOBIN A1c 5.7 %
[2019-05-27 14:03] LABS: ALBUMIN 4.3 GM/DL (3.2-5.2); ALT/SGPT 38 U/L (12-78); BILIRUBIN,TOTAL 0.8 MG/DL (0.2-1.0); BLOOD UREA NITROGEN 17 MG/DL (7-18); CALCIUM LEVEL 9.2 MG/DL (8.5-10.1); CARBON DIOXIDE LEVEL 24 MEQ/L (21-32); CHLORIDE LEVEL 108 MEQ/L (98-107); CHOLESTEROL LEVEL 225 MG/DL (<200); CHOLESTEROL RISK RATIO 5.357 (<5); FREE T4 0.95 NG/DL (0.76-1.46); GLOMERULAR FILTRATION RATE > 60.0 (>56); GLUCOSE, FASTING 88 MG/DL (70-100); HDL CHOLESTEROL 42 MG/DL (>40); LDL CHOLESTEROL 157 MG/DL (<100); NON-HDL-C 183 MG/DL; POTASSIUM SERUM 4.9 MEQ/L (3.5-5.1); SODIUM LEVEL 138 MEQ/L (136-145); TOTAL PROTEIN 7.6 GM/DL (6.4-8.2); TRIGLYCERIDES LEVEL 128 MG/DL (<150)
[2019-05-27 14:04] LABS: TOTAL 25(OH) VITAMIN D 28.4 NG/ML (30.0-100.0)
[2019-05-27 14:10] LABS: MALB URINE SIEMENS 22.5 MG/L
== END ==
LOC: M PLALAB 11:29
PROVIDERS: ATTEND Nurse Practitioner Family
DX: E11.9 Type 2 diabetes mellitus without complications (principal); E78.5 Hyperlipidemia, unspecified; E55.9 Vitamin D deficiency, unspecified

== ENCOUNTER → 2019-05-27 | Outpatient (REF) | payer MEDICARE, MEDICAID ==
[~2019-05-27] MED LIST changes: +ALBU8.5H; +METF750T36
== END ==
LOC: M LAB REF 18:47
PROVIDERS: ATTEND Dermatology
DX: D04.5 Carcinoma in situ of skin of trunk (principal); C44.712 Basal cell carcinoma of skin of right lower limb, including hip; L57.0 Actinic keratosis; E11.9 Type 2 diabetes mellitus without complications; E78.5 Hyperlipidemia, unspecified; E55.9 Vitamin D deficiency, unspecified
CPT/HCPCS: 11102; 11103; 36415; 80053; 80061; 82043; 82306; 83036; 84439; 84443; 85025; 88305; G0463

== ENCOUNTER 2019-06-05 19:26 | Emergency (ER) | payer MEDICAID, MEDICARE ==
[~2019-06-05] VITALS: Ht 170.2 cm; Wt 81.0 kg
[~2019-06-05 19:26] MED LIST changes: -ALBU8.5H; -METF750T36
[2019-06-05] MEDS ORDERED: ALBU8.5H (19:51)
[2019-06-05] MEDS ORDERED: METF750T36 (19:51)
[2019-06-05 20:43] LABS: APPEARANCE, URINE CLEAR (CLEAR); BACTERIA, URINE AUTO NEGATIVE (NEGATIVE); BILIRUBIN, URINE AUTO NEGATIVE (NEGATIVE); BLOOD, URINE BLOOD NEGATIVE (NEGATIVE); COLOR, URINE STRAW (YELLOW); GLUCOSE, URINE (UA) AUTO NEGATIVE (NEGATIVE); KETONE, URINE AUTO NEGATIVE (NEGATIVE); LEUKOCYTE ESTERASE, URINE AUTO NEGATIVE (NEGATIVE); NITRITE, URINE AUTO NEGATIVE (NEGATIVE); PROTEIN, URINE AUTO NEGATIVE (NEGATIVE); RBC, URINE AUTO 0 /HPF (0-3); SPECIFIC GRAVITY URINE AUTO 1.003 (1.002-1.035); SQUAMOUS EPITHELIAL CELL UR AU 0 /HPF (0-6); UROBILINOGEN, URINE AUTO 0.2 mg/dL (0.0-2.0); WBC, URINE AUTO 0 /HPF (0-3)
[2019-06-05 20:59] LABS: AMPHETAMINES LEVEL URINE NEGATIVE (NEGATIVE); BARBITURATES URINE NEGATIVE (NEGATIVE); BENZODIAZEPINES URINE NEGATIVE (NEGATIVE); CANNABINOIDS URINE NEGATIVE (NEGATIVE); COCAINE METABOLITE URINE NEGATIVE (NEGATIVE); METHADONE URINE NEGATIVE (NEGATIVE); OPIATES URINE NEGATIVE (NEGATIVE); PHENCYCLIDINE URINE NEGATIVE (NEGATIVE)
[2019-06-05 21:34] LABS: BASO # 0.1 10^3/uL (0.0-0.2); BASO % 0.7 % (0.0-1.0); EOS # 0.1 10^3/uL (0.0-0.5); EOS % 0.7 % (0.0-3.0); HEMATOCRIT 41.7 % (42.0-52.0); HEMOGLOBIN 14.6 g/dl (13.5-17.5); LYMPH # 3.1 10^3/uL (1.5-5.0); LYMPH % 34.8 % (24.0-44.0); MEAN CORPUSCULAR HEMOGLOBIN 32.7 pg (27.0-33.0); MEAN CORPUSCULAR VOLUME 93.3 fl (80.0-96.0); MONO # 0.7 10^3/uL (0.0-0.8); MONO % 7.9 % (0.0-5.0); NEUTROPHILS # 4.9 10^3/uL (1.5-8.5); NEUTROPHILS % 55.7 % (36.0-66.0); PLATELET COUNT, AUTOMATED 246 10^3/uL (150-450); RED BLOOD COUNT 4.47 10^6/uL (4.30-6.10); WHITE BLOOD COUNT 8.8 10^3/uL (4.0-10.0)
[2019-06-05] MEDS ORDERED: ACETAMINOPHEN 325 MG TAB PO ONE (21:45)
[2019-06-05] MEDS ORDERED: KETOROLAC 30 MG/ML VIAL (J1885) IM ONE (21:45)
[2019-06-05] MEDS ORDERED: LIDOCAINE 5% (LIDODERM) PATCH TD ONE (23:15)
[2019-06-06] MEDS ORDERED: traMADol 50 MG TAB (BULK 4 TAB ED) PO ONE (00:15)
[2019-06-06 00:23] VITALS: BP 154/70
--- NOTE | 2019-06-06 09:12 | REP ---
RIGHT KNEE: Six views. HISTORY: Injury in a fall. Comparison right knee radiographs are from December 19, 2017. FINDINGS: There is moderate medial compartment osteoarthritis of the knee with joint space narrowing, sclerosis and well established osteophyte formation unchanged from prior study. Lateral compartment and patellofemoral compartment spurring is seen as well. No fracture is noted. There is evidence of suprapatellar joint fluid consistent with an effusion. Vascular calcification is noted. IMPRESSION: Osteoarthritis. Evidence of joint fluid. No fracture seen. Electronically Signed by Destin Chase MD 06/06/2019 06:31 P
--- NOTE | 2019-06-06 09:20 | REP ---
Limited lumbar spine series: Three views. History: History of chronic back pain. The patient reports a fall. Comparison study February 24, 2019. Findings: There is moderate osteoarthritis of the hips bilaterally. Diffuse degenerative disc disease is seen in the lumbar spine at each lumbar level radiographically unchanged from February 24, 2019. There is some vascular calcification in a normal caliber aorta. No fracture or collapse is seen. Alignment is normal. There is no evidence of spondylolysis or spondylolisthesis. There is osteoarthritic facet hypertrophy on the left at L4-5 and L5-S1. Impression: Degenerative spondylosis changes as above, stable from February 24, 2019. Moderate osteoarthritis of the hips. Electronically Signed by Destin Chase MD 06/06/2019 06:32 P
[2019-06-06] MEDS ORDERED: **NOTE PATIENT COMMENT** MISC XX SCH (21:00)
== END 2019-06-06 00:31 | disposition home or self-care (01) ==
LOC: M ED 19:26
DX: S50.811A Abrasion of right forearm, initial encounter (principal); M54.5 Low back pain; M25.561 Pain in right knee; G89.29 Other chronic pain; W01.0XXA Fall on same level from slipping, tripping and stumbling without subsequent striking against object, initial encounter; Y92.098 Other place in other non-institutional residence as the place of occurrence of the external cause; F10.10 Alcohol abuse, uncomplicated; Z91.041 Radiographic dye allergy status; Z91.048 Other nonmedicinal substance allergy status; Z88.8 Allergy status to other drugs, medicaments and biological substances; Z79.899 Other long term (current) drug therapy; Z79.84 Long term (current) use of oral hypoglycemic drugs
CPT/HCPCS: 36415; 72100; 73560; 80047; 80307; 81001; 85025; 96372; 99284; G0480; J1885

== ENCOUNTER 2019-06-06 06:14 | Emergency (ER) | payer MEDICARE ==
[~2019-06-06] VITALS: Ht 170.2 cm; Wt 81.0 kg
[~2019-06-06 06:14] MED LIST changes: +ALBU8.5H; +METF750T36
[2019-06-06 07:26] LABS: AMPHETAMINES LEVEL URINE NEGATIVE (NEGATIVE); BARBITURATES URINE NEGATIVE (NEGATIVE); BENZODIAZEPINES URINE NEGATIVE (NEGATIVE); CANNABINOIDS URINE NEGATIVE (NEGATIVE); COCAINE METABOLITE URINE NEGATIVE (NEGATIVE); METHADONE URINE NEGATIVE (NEGATIVE); OPIATES URINE NEGATIVE (NEGATIVE); PHENCYCLIDINE URINE NEGATIVE (NEGATIVE)
[2019-06-06 09:25] VITALS: BP 161/71
== END 2019-06-06 09:15 | disposition home or self-care (01) ==
LOC: M ED 06:14
DX: G89.29 Other chronic pain (principal); M54.5 Low back pain; M25.561 Pain in right knee; F10.20 Alcohol dependence, uncomplicated; F17.200 Nicotine dependence, unspecified, uncomplicated; E11.9 Type 2 diabetes mellitus without complications; I10 Essential (primary) hypertension; E78.5 Hyperlipidemia, unspecified; M19.90 Unspecified osteoarthritis, unspecified site; J44.9 Chronic obstructive pulmonary disease, unspecified; Z85.828 Personal history of other malignant neoplasm of skin; Z79.84 Long term (current) use of oral hypoglycemic drugs; Z79.899 Other long term (current) drug therapy; Z91.040 Latex allergy status; Z91.89 Other specified personal risk factors, not elsewhere classified
CPT/HCPCS: 80307; 81001; 99284; G0480

== ENCOUNTER 2020-10-11 14:24 | Inpatient (IN) | payer MEDICARE ==
[~2020-10-11] VITALS: Ht 172.7 cm; Wt 51.6 kg
[2020-10-11] MEDS ORDERED: PANTOPRAZOLE 40MG VIAL (C9113 PER 1) IV ONE (15:35)
[2020-10-11] MEDS ORDERED: NS 1,000 ML IV ONE (15:35)
--- NOTE | 2020-10-11 15:59 | REP ---
INDICATION: swelling. COMPARISON: 01/08/2018 TECHNIQUE: Portable FINDINGS: The technique utilized in obtaining the radiograph has magnified the cardiac silhouette and accentuated the interstitial markings. The superior mediastinal structures are midline. The cardiac silhouette is unremarkable in size, shape, and position. The diaphragmatic surfaces of the lungs are regular, and the costophrenic angles are clear. The pulmonary hanley are clear. The imaged osseous structures are intact. IMPRESSION: There is no acute cardiopulmonary disease. <Electronically signed by Dno Case > 10/11/20 [id number]
[2020-10-11 17:56] LABS: BASO % 0.3 % (0.0-1.0); EOS % 0.3 % (0.0-3.0); HEMATOCRIT 37.7 % (42.0-52.0); HEMOGLOBIN 13.6 g/dl (13.5-17.5); LYMPH # 0.6 10^3/uL (1.5-5.0); LYMPH % 8.7 % (24.0-44.0); MEAN CORPUSCULAR HEMOGLOBIN 32.9 pg (27.0-33.0); MEAN CORPUSCULAR HGB CONC 36.1 g/dl (32.0-36.5); MEAN CORPUSCULAR VOLUME 91.1 fl (80.0-96.0); MONO # 0.8 10^3/uL (0.0-0.8); MONO % 11.1 % (2.0-8.0); NEUTROPHILS # 5.6 10^3/uL (1.5-8.5); NEUTROPHILS % 78.8 % (36.0-66.0); PLATELET COUNT, AUTOMATED 127 10^3/uL (150-450); RED BLOOD COUNT 4.14 10^6/uL (4.30-6.10); WHITE BLOOD COUNT 7.1 10^3/uL (4.0-10.0)
[2020-10-11 18:07] LABS: PROTHROMBIN TIME 13.4 SECONDS (12.5-14.3)
--- NOTE | 2020-10-11 18:09 | REP ---
INDICATION: swelling. COMPARISON: None. TECHNIQUE: Multiple ultrasonographic images of the deep venous structures of the bilateral lower extremity were obtained from the inguinal ligament to the ankle. Venous compression techniques, color doppler imaging, and augmentation techniques were also obtained where appropriate. As per the ACR guidelines the anterior tibial vein can not be effectively evaluated. Only compression techniques in the calf on the peroneal and posterior tibial veins was attempted/performed. FINDINGS: There is no abnormal echogenic material seen within any of the visualized deep venous structures that would suggest acute thrombosis. Coaptation is unremarkable throughout. Doppler interrogation shows an expected response to respiratory variability and augmentation in the thigh. Compression techniques in the calf showed no abnormality. The color flow images show what appears to be a normal vascular pattern throughout the thigh. IMPRESSION: There is no ultrasonographic evidence of deep venous thrombosis involving any of the visualized deep venous structures of the bilateral lower extremity as described above. <Electronically signed by Don Case > 10/11/20 [id number]
[2020-10-11 18:20] LABS: BLOOD UREA NITROGEN 6 MG/DL (7-18); CALCIUM LEVEL 8.4 MG/DL (8.8-10.2); CARBON DIOXIDE LEVEL 24 MEQ/L (21-32); CHLORIDE LEVEL 81 MEQ/L (98-107); CREATININE FOR GFR 0.44 MG/DL (0.70-1.30); GLOMERULAR FILTRATION RATE > 60.0 (>49); GLUCOSE, FASTING 66 MG/DL (70-100); POTASSIUM SERUM 5.5 MEQ/L (3.5-5.1); SODIUM LEVEL 117 MEQ/L (136-145)
[2020-10-11 18:50] LABS: RSV AMPLIFICATION NEGATIVE (NEGATIVE)
[2020-10-11 19:07] LABS: ALBUMIN 2.9 GM/DL (3.2-5.2); ALT/SGPT 256 U/L (12-78); AMYLASE 14 U/L (25-115); BILIRUBIN,DIRECT 6.7 MG/DL (0.0-0.2); BILIRUBIN,TOTAL 12.7 MG/DL (0.2-1.0); CK-MB VALUE MASS 2.5 NG/ML (<3.6); CPK CREATINE PHOSPHOKINASE 259 U/L (39-308); ETHYL ALCOHOL (ETHANOL) 0.144 % (0.000-0.010); LIPASE 140 U/L (73-393); MB/CK RELATIVE INDEX 0.97 (< OR =4); TOTAL PROTEIN 6.8 GM/DL (6.4-8.2); TROPONIN I < 0.02 NG/ML (< 0.10)
--- NOTE | 2020-10-11 19:45 | REPVR ---
PROCEDURE INFORMATION: Exam: CT Abdomen And Pelvis Without Contrast Exam date and time: 10/11/2020 6:31 PM Age: 59 years old Clinical indication: Abdominal pain. TECHNIQUE: Imaging protocol: Computed tomography of the abdomen and pelvis without contrast. Radiation optimization: All CT scans at this facility use at least one of these dose optimization techniques: automated exposure control; mA and/or kV adjustment per patient size (includes targeted exams where dose is matched to clinical indication); or iterative reconstruction. COMPARISON: CT ABD PELVIS WITH CONTRAST 09/14/2014 8:43 PM FINDINGS: Lungs: The imaged portions of the lung bases are clear. The lungs were not fully imaged. Heart: No cardiomegaly or pericardial effusion is noted. There are coronary artery calcifications. Liver: The liver measures less than 40 Hounsfield units and the attenuation of the liver measures more than 10 Hounsfield units lower compared to the attenuation of the spleen, which is compatible with fatty liver infiltration. The liver is enlarged and in craniocaudal dimension and at the level of the right midclavicular line, the liver measures 23.9 cm. No liver lesion is identified. The contour of the liver is smooth. Gallbladder and bile ducts: No calcified gallstones are noted. No gallbladder wall thickening, pericholecystic fluid, or pericholecystic inflammatory changes are identified. No dilation of the bile ducts is noted. No calcified stones are seen in the common bile duct. Pancreas: Unremarkable. No ductal dilation. Spleen: There is a calcified granuloma in the spleen, which is unchanged compared to the prior CT abdomen and pelvis on 09/14/2014. No splenomegaly. Adrenal glands: Normal. No adrenal mass is noted. Kidneys and ureters: There is a 1 mm possible calculus in the right renal collecting system (image 66 of the axial series 201 and image 69 of the coronal series 202). No calculi are noted in the left kidney or ureters. No hydronephrosis or hydroureter is present. No renal lesion is identified with this unenhanced technique. Stomach and bowel: There is thickening of the wall of the stomach, which may be secondary to its decompressed state versus gastritis. The small bowel is unremarkable. There is colonic diverticulosis without evidence for diverticulitis. There is no evidence for a bowel obstruction, colitis, pneumatosis intestinalis, intussusception, volvulus, or perforated viscus. Appendix: No evidence for appendicitis. Intraperitoneal space: No free air. No ascites. No abscess. Retroperitoneal space: No fluid collection. No mass. Vasculature: The abdominal aorta is normal in caliber. There are extensive atherosclerotic calcifications. Lymph nodes: No enlarged lymph nodes. Urinary bladder: The distended urinary bladder is normal in appearance. No stones or masses are seen in the bladder. Reproductive: There are calcifications in the prostate gland. The seminal vesicles are unremarkable. A penile prosthesis was partially imaged. Bones/joints: There is no fracture or dislocation. No suspicious osteolytic or osteoblastic lesion. There are degenerative changes involving the lumbar spine. There is severe osteoarthritis of both hips and degenerative changes involving the pubic symphysis. Soft tissues: There has been a left inguinal hernia repair since the prior CT abdomen and pelvis on 09/14/2014. IMPRESSION: 1. Thickening of the wall of the stomach, which may be secondary to its decompressed state versus gastritis. 2. Colonic diverticulosis without evidence for diverticulitis. 3. Enlarged, fatty liver. 4. 1 mm possible nonobstructive calculus in the right renal collecting system. No hydronephrosis or hydroureter. Electronically signed by: Gurmeet Ruggiero On 10/11/2020 19:45:03 PM
[2020-10-11] MEDS ORDERED: DEXTROSE 50% 50 ML SYRINGE IV PRN (20:55)
[2020-10-11] MEDS ORDERED: GLUCOSE 4GM CHEW TABLET PO PRN (20:55)
[2020-10-11] MEDS ORDERED: GLUCAGON INJ 1MG VIAL SC PRN (20:55)
[2020-10-11] MEDS ORDERED: HumaLOG INSULIN (NovoLOG) PER UNIT SC SCH (21:00)
--- NOTE | 2020-10-11 21:04 | HPEPDOC ---
[facility] Medical History & Physical Date of Admission Oct 11, 2020 Date of Service: Oct 11, 2020 Primary Care Physician: ALBERTO SOLITARIO Attending Physician: MYRIAM CARPENTER MD History and Physical TIME OF SERVICE: 8:10 PM CHIEF COMPLAINT: Knee pain HISTORY OF PRESENT ILLNESS: This 59-year-old gentleman was brought to the hospital by his daughter who has not seen him for a while. Apparently he has been having severe right-sided knee pain and is scheduled for surgery but has not followed up with his orthopedic surgeon. As result of the pain he has not gotten up out of his chair for 2 weeks. When EMS found him he was covered in urine and feces. He has not been eating and has not been taking his medications. His daughter is very concerned that he has not followed up with his PCP or orthopedic surgeon for over 1 year, he is not taking his medications, his eyes and skin appear yellow, he has lost weight and is moving more slowly than usual. The patient seemed most concerned about the knee pain and bilateral foot and lower leg swelling. REVIEW OF SYSTEMS: 10 point review of systems negative except as listed in HPI PAST MEDICAL/ SURGICAL HISTORY: Essential hypertension, NIDDM, dyslipidemia, bilateral knee osteoarthritis vitamin D deficiency, generalized anxiety disorder, gold stage III COPD with an FEV1 of 49%, diverticulosis, CUONG (CPAP 7 cm H2O), bilateral shoulder surgery, bilateral inguinal hernia repair with mesh placement (the left was an open repair, while the right was robotic assisted), right wrist surgery, right elbow surgery, resection of basal cell carcinoma on the left shoulder left elbow and left ankle, erectile dysfunction with placement of a penile implant SOCIAL HISTORY: He smokes, drinks alcohol daily, and lives on his own FAMILY HISTORY: His father of 82 years old of unknown medical problems, his mother at 45 years old of a brain aneurysm, his daughter has psoriasis, while his sister had melanoma. ALLERGIES: Please see below. HOME MEDICATIONS: Please see below. PHYSICAL EXAMINATION: Vital Signs Date Time Temp Pulse Resp B/P (MAP) Pulse Ox O2 Delivery O2 Flow Rate FiO2 10/11/20 14:51 125/71 (89) 10/11/20 14:52 96.3 109 20 97 Room Air GENERAL APPEARANCE: Slim build / NAD HEENT: Has scleral icterus/ MM pink but dry /poor dentition CARDIOVASCULAR: RRR/NMRG /he has pitting edema affecting both feet and ankles up to the mid shins LUNGS: CTAB on RA ABDOMEN: contour flat / soft & NT w palpation MUSCULOSKELETAL: ROMIx 4 /right knee swollen INTEGUMENT: Is markedly jaundice/both feet and ankles are duskypink in color and a different color from the skin on the rest of his body /the skin on his thighs and upper part of the lower legs is shiny with reduced hair distribution NEUROLOGICAL: CN 2-12 intact / speech not dysarthric PSYCHIATRIC: A&O /able to understand and follow simple commands LABORATORY DATA: IMAGING: CT abdomen and pelvis IMPRESSION: 1. Thickening of the wall of the stomach, which may be secondary to its decompressed state versus gastritis. 2. Colonic diverticulosis without evidence for diverticulitis. 3. Enlarged, fatty liver. 4. 1 mm possible onobstructive calculus in the right renal collecting system. No hydronephrosis or hydroureter. Chest x-ray IMPRESSION: There is no acute cardiopulmonary disease. BLE vascular ultrasound IMPRESSION: There is no ultrasonographic evidence of deep venous thrombosis involving any of the visualized deep venous structures of the bilateral lower extremity as described above. MICROBIOLOGY: Respiratory panel is negative EKG showed a rate of 125 with PACs ASSESSMENT: Mr. Patiño is a 59-year-old gentleman with a history of HTN, NIDDM, DLP, OA, ANAY, COPD, liver cirrhosis, diverticulosis, CUONG & ED who is admitted for management of hyponatremia. PLAN: 1 Subacute hyponatremia -He is asymptomatic -This is likely due to combination of beer potomania and poor oral intake. -He already received 1 L of normal saline in the ER Plan: Admit to PCU/ f/u repeat Serum Na, Serum osmol, Uosmol & Teto / frequent Neurochecks /place Cardoso to monitor strict UOP / f/u repeat BMP and Ulytes /the daytime team may consider placing a Nephrology consult if the results of the Ulytes are equivocal 2 Tachycardia -Likely due to combination of dehydration and alcohol withdrawal Plan: Telemetry/follow-up serial troponins and TSH/ follow-up repeat EKG in the morning 3 Transaminitis likely 2/2 Alcoholic liver cirrhosis -He denied having abdominal pain therefore he doesnt have alcoholic hepatitis -Despite the CT not mentioning liver cirrhosis he likely has liver cirrhosis. Per JAMAs article Does this patient with liver disease have cirrhosis? The clinical features which he has increase the likelihood of cirrhosis: Decreased body hair PLR 9.0, Plt count <160,000 PLR 6.3, albumin < 3.5 PLR 4.4 - MELD Score = 26 = 19.6% Estimated 3 month mortality - ANI score to distinguish alcoholic cirrhosis from NAFLD in patients with steatohepatitis is 1.0022 which is equal to a 73.5% probability that this is alcoholic liver disease. Plan: because his MELD score is 15 and he is at high risk of developing decompensated liver cirrhosis I will ask the day time team to consider con sulting / to prevent the catabolic effects of chronic liver disease we will order a high protein diet (ideally he should have a daily protein intake of 1.5 g/kg body weight, the day time team may consider placing a necktie maker consult to help achieve this goal) / f/u Hepatitis panel / trend LFTs & INR PTT aPTT / prior to discharge he will need counseling about abstinence from alcohol, instructions to limit his Acetaminophen to <2G daily / he can f/u with PCP for surveillance & prevention with liver US +/- -fetoprotein Q6 months, osteoporosis screening, to administer his Hep A,B vaccines if not already immune & to administer annual influenza vaccine, Prevnar and Pneumovax / he will also need to be referred to a Heel Stainer on an out patient basis for screening EGD every 1-3 yrs to monitor for development of varices 4 Thrombocytopenia - likey 2/2 reduced thrombopoetin production due to liver cirrhosis Plan: f/u CBC and monitor for bleeding 5 BLE foot and ankle -2/2 low albumin due to liver cirrhosis Plan: elevate legs / encouraged him to focus on consuming high protein foods / I will hold off Lasix because clinically he appears dehydrated 6 Mild asymptomatic Hypoglycemia 2/2 poor oral intake / hx of NIDDM -He hasnt been taking his DM meds Plan: liberalize diet to regular diet / f/u accucheck / hypoglycemia protocol / sliding scale insulin / hold oral anti-glycemic / f/u A1C 7 Pseudohypokalemia Plan: f/u repeat BMP 7 Stage 2 Decubitus Sacral Ulcer Plan: air mattress / high protein diet 8 Severe right knee OA Plan: Flector patch / f/u w Ortho on an out patient basis to schedule surgery 9 Alcohol Abuse Plan: telemetry / seizure precautions / fall precautions / Ativan per CIWA protocol/ Thiamine 100mg daily, Folic acid 1mg daily, MVI / check serum acetone / trend Mag, Phos and K to bc he is at risk for refeeding syndrome 10 Essential HTN -not taking his ACEI -Plan: hold lisinopril until hyponatremia has resolved / PRN hydralazine 11 DLP -not taking statin 12 COPD 2/2 Tobacco Abuse Plan: nicotine patch / smoking cessation education DVT PROPHYLAXIS: TEDS/SDCs (Rhett score is only 3 therefore pharmacological Px is not indicated) DISPOSITION: dc home vs rehab unit after more than 2 midnight's stay Home Medications No Active Prescriptions or Reported Meds Allergies Coded Allergies: TAPE (Verified Adverse Reaction, Intermediate, PLASTIC TAPE - "my skin bubbles and peels off", 10/11/20) povidone-iodine (Verified Adverse Reaction, Intermediate, burning, ) soap (Verified Adverse Reaction, Intermediate, burning, 10/11/20) Contrast Media (Verified Adverse Reaction, Unknown, BLISTERS, 10/11/20) A-FIB/CHADSVASC A-FIB History Current/History of A-Fib/PAF?: No Current PO Anticoag Therapy: No MYRIAM CARPENTER MD Oct 11, 2020 21:04
[2020-10-11 21:26] LABS: PARTIAL THROMBOPLASTIN TIME 34.8 SECONDS (24.2-38.5)
--- NOTE | 2020-10-11 21:42 | ECGEPIP ---
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
[2020-10-11 22:24] LABS: OSMOLALITY SERUM 266 MOSM/KG (275-295)
[2020-10-11 23:58] LABS: BLOOD UREA NITROGEN 5 MG/DL (7-18); CALCIUM LEVEL 7.5 MG/DL (8.8-10.2); CARBON DIOXIDE LEVEL 22 MEQ/L (21-32); CHLORIDE LEVEL 89 MEQ/L (98-107); CREATININE FOR GFR 0.32 MG/DL (0.70-1.30); GLOMERULAR FILTRATION RATE > 60.0 (>49); GLUCOSE, FASTING 68 MG/DL (70-100); HEPATITIS A ANTIBODY IGM NEGATIVE (NEGATIVE); HEPATITIS B CORE ANTIBODY IGM NEGATIVE (NEGATIVE); HEPATITIS B SURFACE ANTIGEN NEGATIVE (NEGATIVE); POTASSIUM SERUM 4.9 MEQ/L (3.5-5.1); SODIUM LEVEL 125 MEQ/L (136-145); TROPONIN I < 0.02 NG/ML (< 0.10)
[2020-10-12] MEDS: THIAMINE 100 MG TAB PO SCH ×3 (00:48→21:21)
[2020-10-12] MEDS: DICLOFENAC EPOLAMINE 1.3 % PATCH TOP SCH ×3 (00:52→21:20)
[2020-10-12] MEDS: HumaLOG INSULIN (NovoLOG) PER UNIT SC SCH ×3 (04:00→08:05)
[2020-10-12] MEDS ORDERED: **hydrALAZINE** 10 MG TAB PO PRN (04:25)
[2020-10-12] MEDS: NICOTINE 7 MG/24 HR TRANSDERMAL TD SCH ×2 (04:47→21:19)
[2020-10-12] MEDS: LORazepam 2 MG TAB PO PRN (05:56)
[2020-10-12 06:04] LABS: MEAN CORPUSCULAR HEMOGLOBIN 33.1 pg (27.0-33.0); PLATELET COUNT, AUTOMATED 119 10^3/uL (150-450); RED BLOOD COUNT 3.26 10^6/uL (4.30-6.10); WHITE BLOOD COUNT 6.5 10^3/uL (4.0-10.0)
[2020-10-12 06:08] LABS: HEMOGLOBIN 10.8 g/dl (13.5-17.5)
[2020-10-12] MEDS ORDERED: MORPHINE 2 MG/ML 1ML VIAL (J2270) IV ONE (06:10)
[2020-10-12 06:13] LABS: INR 1.1; PROTHROMBIN TIME 14.4 SECONDS (12.5-14.3)
[2020-10-12 06:36] LABS: ACETONE/KETONE 24.48 MG/DL (<2.81); PHOSPHORUS LEVEL 3.5 MG/DL (2.5-4.9)
[2020-10-12 06:37] LABS: OSMOLALITY SERUM 257 MOSM/KG (275-295)
[2020-10-12 06:42] LABS: ALBUMIN 2.5 GM/DL (3.2-5.2); ALT/SGPT 204 U/L (12-78); BILIRUBIN,TOTAL 10.1 MG/DL (0.2-1.0); BLOOD UREA NITROGEN 5 MG/DL (7-18); CARBON DIOXIDE LEVEL 26 MEQ/L (21-32); CHLORIDE LEVEL 89 MEQ/L (98-107); GLOMERULAR FILTRATION RATE > 60.0 (>49); GLUCOSE, FASTING 116 MG/DL (70-100); MAGNESIUM LEVEL 2.2 MG/DL (1.8-2.4); POTASSIUM SERUM 3.9 MEQ/L (3.5-5.1); SODIUM LEVEL 124 MEQ/L (136-145); TOTAL PROTEIN 5.4 GM/DL (6.4-8.2)
[2020-10-12] MEDS ORDERED: HumaLOG INSULIN (NovoLOG) PER UNIT SC SCH (07:30)
[2020-10-12] MEDS ORDERED: ENOXAPARIN 40MG/0.4ML SYRINGE (J1650 PER 10MG) SC SCH (09:00)
[2020-10-12] MEDS: FOLIC ACID 1 MG TAB PO SCH (09:04)
[2020-10-12] MEDS: MULTIVITAMINS/MINERALS THERAP 1 TAB PO SCH (09:05)
[2020-10-12 13:15] LABS: BLOOD UREA NITROGEN 5 MG/DL (7-18); CALCIUM LEVEL 8.4 MG/DL (8.8-10.2); CARBON DIOXIDE LEVEL 28 MEQ/L (21-32); CHLORIDE LEVEL 91 MEQ/L (98-107); CREATININE FOR GFR 0.32 MG/DL (0.70-1.30); GLOMERULAR FILTRATION RATE > 60.0 (>49); GLUCOSE, FASTING 108 MG/DL (70-100); POTASSIUM SERUM 3.6 MEQ/L (3.5-5.1); SODIUM LEVEL 127 MEQ/L (136-145)
[2020-10-12 15:56] VITALS: BP 128/71
[2020-10-12 17:00] VITALS: BP_SYST 128; BP_SYST 178; BP_DIAS 21; BP_DIAS 71
[2020-10-12 18:36] LABS: BLOOD UREA NITROGEN 7 MG/DL (7-18); CALCIUM LEVEL 8.3 MG/DL (8.8-10.2); CARBON DIOXIDE LEVEL 27 MEQ/L (21-32); CHLORIDE LEVEL 95 MEQ/L (98-107); CREATININE FOR GFR 0.54 MG/DL (0.70-1.30); GLOMERULAR FILTRATION RATE > 60.0 (>49); GLUCOSE, FASTING 158 MG/DL (70-100); POTASSIUM SERUM 3.8 MEQ/L (3.5-5.1); SODIUM LEVEL 131 MEQ/L (136-145)
[2020-10-12 20:00] VITALS: BP 117/65
[2020-10-12] MEDS ORDERED: D5W 1,000 ML IV SCH (21:25)
[2020-10-12 22:04] LABS: SODIUM,RANDOM URINE 10 MEQ/L
--- NOTE | 2020-10-12 22:09 | IPNPDOC ---
Subjective Date Seen The patient was seen on 10/12/20. Subjective Chief Complaint/HPI Complained of bilateral hip pain and knee pain and inability to walk due to the pain. Denied any abdominal pain , nausea or vomiting . Does say he has intermittent diarreha though none today or yesterday. He says he drinks a 6 pack or beer daily. But it suspect it is more than that. Objective Physical Examination General Exam: Positive: Alert, Cooperative, No Acute Distress Eye Exam: Positive: PERRLA, Conjunctiva & lids normal, EOMI, Sclera icteric ENT Exam: Positive: Atraumatic, Mucous membr. moist/pink, Pharynx Normal, Other ENT (bitemporal wasting. ) Neck Exam: Positive: Supple; Negative: JVD, thyromegaly Chest Exam: Positive: Clear to auscultation, Normal air movement Heart Exam: Positive: Rate Normal, Regular Rhythm, Normal S1, Normal S2; Negative: Murmurs, Rubs Abdomen Exam: Positive: Normal bowel sounds, Soft; Negative: Tenderness Extremity Exam: Negative: Clubbing, Cyanosis, Edema Skin Exam: Positive: Nl turgor and temperature, Breakdown (sacral decubiti); Negative: Rash Assessment /Plan Assessment Mr. Patiño is a 59-year-old gentleman with a history of alcohol abuse, HTN, NIDDM, DLP, OA, ANAY, COPD, probably liver cirrhosis, diverticulosis, CUONG & ED who presented to the ED for jaundice, generalized weakness, weight loss, inability to ambulate for unknown duration likely about 2 weeks as per Patient and was found to have hyponatremia, cholestatic jaundice. CT abdomen and pelvis shwed enlarged fatty liver, no splenomegaly, no ascites, no CBD or intrahepatic biliary duct dilatation. No gall stones or cbd stones seen. There is colonic diverticulosis without diverticulitis. Hyponatremia Likely due to combination of beer potomania and poor oral intake. Sodium corrected rapidly after receiving 1 liter of NS int he ED. At present Na is 131 up from 117 yesterday afternoon. Will give Dex 250 cc / hour to try to bring down to 127 and keep it at that level overnight. Monitor intake and output strictly. Nephrology consulted. 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 Alcohol abuse [facility] protocol. ativan, thiamine and folate will check mag and phos. Thrombocytopenia either due to cirrhosis or due to bone marrow suppression from heavy alcohol use If thrombocytopenia resolves with alcohol abstinence its likely due to bone marrow suppression. H/o Diabetes A1c 5.0 Resolved probably from malnutrition and weight loss. regular diet. Stage 2 Decubitus Sacral Ulcer air mattress / high protein diet Severe right knee OA and hip OA. Flector patch / f/u w Ortho on an out patient basis to schedule surgery Essential HTN Bp controlled at present. Not needing any meds. Tobacco Abuse nicotine patch / smoking cessation education Protein calorie malnutrition due to alcohol abuse. Has dropped 13 kgs in 1 year, albumin is 2.5 or even lower after hydration. wasting of small muscles of hand, bitemporal wasting. Plan/VTE VTE Prophylaxis Ordered?: Yes VS, I&O, 24H, Fishbone Vital Signs/I&O Vital Signs Date Time Temp Pulse Resp B/P (MAP) Pulse Ox O2 Delivery O2 Flow Rate FiO2 10/12/20 20:00 97.7 114 16 117/65 (82) 95 Room Air Laboratory Data 24H LABS Laboratory Tests 2 10/11/20 21:46: Anion Gap 14, Glomerular Filtration Rate > 60.0, Osmolality 266L, Calcium Level 7.5L, Troponin I < 0.02, Thyroid Stimulating Hormone (TSH) 1.440, Hepatitis A IgM Antibody NEGATIVE, Hepatitis B Surface Antigen NEGATIVE, Hepatitis B Core IgM Antibody NEGATIVE, Hepatitis C Antibody Index 0.0 10/12/20 00:46: Bedside Glucose (Misc Panel) 173H 10/12/20 04:50: Bedside Glucose (Misc Panel) 121H 10/12/20 05:49: Anion Gap 9, Glomerular Filtration Rate > 60.0, Osmolality 257L, Calcium Level 8.0L, Nucleated Red Blood Cells % (auto) 0.0, Prothrombin Time 14.4H, Prothromb Time International Ratio 1.10, Magnesium Level 2.2, Total Bilirubin 10.1H, Aspartate Amino Transf (AST/SGOT) 270H, Alanine Aminotransferase (ALT/SGPT) 204H, Alkaline Phosphatase 269H, Total Protein 5.4#L, Albumin 2.5L, Albumin/Globulin Ratio 0.9 10/12/20 08:03: Bedside Glucose (Misc Panel) 64L 10/12/20 09:04: Bedside Glucose (Misc Panel) 109 10/12/20 12:09: Bedside Glucose (Misc Panel) 119H 10/12/20 12:28: Anion Gap 8, Glomerular Filtration Rate > 60.0, Calcium Level 8.4L 10/12/20 18:01: Anion Gap 9, Glomerular Filtration Rate > 60.0, Calcium Level 8.3L 10/12/20 21:17: Bedside Glucose (Misc Panel) 171H CBC/BMP Laboratory Tests 10/11/20 21:46 10/12/20 05:49 10/12/20 12:28 10/12/20 18:01 HARMONY GONZALEZ MD Oct 12, 2020 22:09
[2020-10-12 22:10] LABS: OSMOLALITY URINE 494 MOSM/KG (50-1400)
[2020-10-12 23:24] VITALS: BP 118/65
[2020-10-13] MEDS ORDERED: methylPREDNISolone 125MG 2ML VIAL IV STA (00:22)
[2020-10-13] MEDS ORDERED: ALBUTEROL SULFATE 2.5 MG/0.5 ML INH NEB SOLN NEB PRN (00:25)
[2020-10-13 00:35] LABS: ALBUMIN 2.2 GM/DL (3.2-5.2); ALT/SGPT 181 U/L (12-78); BILIRUBIN,TOTAL 8.1 MG/DL (0.2-1.0); BLOOD UREA NITROGEN 9 MG/DL (7-18); CALCIUM LEVEL 7.9 MG/DL (8.8-10.2); CARBON DIOXIDE LEVEL 27 MEQ/L (21-32); CHLORIDE LEVEL 94 MEQ/L (98-107); CREATININE FOR GFR 0.43 MG/DL (0.70-1.30); GLOMERULAR FILTRATION RATE > 60.0 (>49); GLUCOSE, FASTING 156 MG/DL (70-100); POTASSIUM SERUM 3.6 MEQ/L (3.5-5.1); SODIUM LEVEL 128 MEQ/L (136-145); TOTAL PROTEIN 4.9 GM/DL (6.4-8.2)
[2020-10-13 00:36] LABS: SODIUM,RANDOM URINE 23 MEQ/L
[2020-10-13 00:55] LABS: OSMOLALITY URINE 559 MOSM/KG (50-1400)
[2020-10-13] MEDS: IPRATROPIUM 0.5MG/ALBUTEROL 2.5MG INH SOL UD 3ML (DUONEB) NEB SCH ×4 (03:02→20:12)
[2020-10-13 04:50] VITALS: BP 135/79
[2020-10-13 05:46] LABS: BASO % 0.4 % (0.0-1.0); EOS % 0.2 % (0.0-3.0); HEMATOCRIT 31.6 % (42.0-52.0); HEMOGLOBIN 10.9 g/dl (13.5-17.5); LYMPH # 0.3 10^3/uL (1.5-5.0); LYMPH % 6.1 % (24.0-44.0); MEAN CORPUSCULAR HEMOGLOBIN 32.8 pg (27.0-33.0); MEAN CORPUSCULAR HGB CONC 34.5 g/dl (32.0-36.5); MEAN CORPUSCULAR VOLUME 95.2 fl (80.0-96.0); MONO # 0.4 10^3/uL (0.0-0.8); MONO % 6.7 % (2.0-8.0); NEUTROPHILS # 4.5 10^3/uL (1.5-8.5); NEUTROPHILS % 85.5 % (36.0-66.0); PLATELET COUNT, AUTOMATED 104 10^3/uL (150-450); RED BLOOD COUNT 3.32 10^6/uL (4.30-6.10); WHITE BLOOD COUNT 5.3 10^3/uL (4.0-10.0)
--- NOTE | 2020-10-13 05:48 | ECGEPIP ---
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
[2020-10-13 06:12] LABS: ALBUMIN 2.3 GM/DL (3.2-5.2); ALT/SGPT 206 U/L (12-78); BLOOD UREA NITROGEN 6 MG/DL (7-18); CALCIUM LEVEL 8.3 MG/DL (8.8-10.2); CARBON DIOXIDE LEVEL 27 MEQ/L (21-32); CHLORIDE LEVEL 96 MEQ/L (98-107); CREATININE FOR GFR 0.28 MG/DL (0.70-1.30); GLOMERULAR FILTRATION RATE > 60.0 (>49); GLUCOSE, FASTING 149 MG/DL (70-100); MAGNESIUM LEVEL 2.1 MG/DL (1.8-2.4); PHOSPHORUS LEVEL 2.5 MG/DL (2.5-4.9); POTASSIUM SERUM 3.5 MEQ/L (3.5-5.1); SODIUM LEVEL 132 MEQ/L (136-145); TOTAL PROTEIN 5.5 GM/DL (6.4-8.2)
[2020-10-13] MEDS: THIAMINE 100 MG TAB PO SCH ×2 (07:46→21:27)
[2020-10-13] MEDS: FOLIC ACID 1 MG TAB PO SCH (07:46)
[2020-10-13] MEDS: predniSONE 20 MG TAB PO SCH (07:46)
[2020-10-13] MEDS: MULTIVITAMINS/MINERALS THERAP 1 TAB PO SCH (07:46)
[2020-10-13] MEDS: DICLOFENAC EPOLAMINE 1.3 % PATCH TOP SCH ×2 (07:47→21:27)
[2020-10-13] MEDS: PANTOPRAZOLE 40MG TAB (PROTONIX) PO SCH (07:47)
[2020-10-13 07:59] VITALS: BP 130/72
[2020-10-13 12:00] VITALS: BP 136/70
[2020-10-13] MEDS: traMADol 50 MG TAB PO PRN (12:28)
--- NOTE | 2020-10-13 12:39 | CR ---
NEPHROLOGY CONSULTATION DATE: 10/13/2020 CONSULTATION REQUESTED BY: Chinedu Castillo REASON FOR CONSULTATION: Hyponatremia. NOTE: Patient was admitted yesterday and nephrology consultation was requested yesterday afternoon. However, patient is seen this morning, as he was in the emergency room all day yesterday. HISTORY OF PRESENT ILLNESS: Mr. Patiño is a 59-year-old gentleman with long history of chronic alcohol use, hypertension, diabetes, dyslipidemia and degenerative arthritis. Apparently, he was found by his daughter sitting in the chair covered in feces and urine. He was brought to the emergency room yesterday and found to have an alcohol level of 0.144. His initial sodium level was 117; however, a repeat sodium within a few hours was 125. He has received initially some intravenous (IV) fluid in the emergency room; however, since then, he has been eating and drinking. He was also found to have deep jaundice, with bilirubin of about 12 on admission. He is now being treated for delirium tremens (DTs) and chronic pain in his lower extremities. Apparently, patient has followup with orthopedics for his knee pain; however, he has not kept his appointments. PAST MEDICAL AND SURGICAL HISTORY: Significant for: 1. Hypertension. 2. Type 2 diabetes. 3. Dyslipidemia. 4. Bilateral knee osteoarthritis. 5. History of generalized anxiety disorder. 6. History of chronic obstructive pulmonary disease (COPD). 7. History of obstructive sleep apnea. 8. History of diverticulosis. 9. History of chronic alcohol use. 10. History of bilateral shoulder surgery. 11. History of bilateral inguinal hernia repair. 12. History of right wrist surgery. 13. History of right elbow surgery. 14. History of basal cell carcinoma. 15. History of erectile dysfunction and a penile implant. PERSONAL AND SOCIAL HISTORY: Patient has a long history of smoking, drinking alcohol and denies any other recreational drug use. FAMILY HISTORY: Father at age 82 of unknown medical problems. Mother at 45 due to brain aneurysm. MEDICATIONS: He was not taking any active medications. ALLERGIES: Patient has allergies to CONTRAST MEDIA, POVIDONE IODINE and TAPE. REVIEW OF SYSTEMS: CONSTITUTIONAL: Patient reports tremors and pain in his lower extremities. EARS, NOSE AND THROAT: Unremarkable. He denies any headache. CARDIOVASCULAR SYSTEM: Significant for history of hypertension. He denies any chest pain. He did have leg edema on admission. RESPIRATORY SYSTEM: Significant for chronic obstructive pulmonary disease (COPD) and obstructive sleep apnea. He has a chronic smoking history. GASTROINTESTINAL (GI) SYSTEM: Significant for hepatic insufficiency with deep jaundice. He denies any vomiting. At home, he was found covered in feces. GENITOURINARY () SYSTEM: Negative for dysuria or hematuria. He currently has a Cardoso catheter, which is draining dark yellow urine. ENDOCRINE SYSTEM: Significant for type 2 diabetes. HEMATOLOGICAL SYSTEM: Negative for any anticoagulation. PSYCHOSOCIAL SYSTEM: Significant for anxiety and chronic alcohol use. NEUROLOGIC SYSTEM: Significant for delirium tremens and tremors. PHYSICAL EXAMINATION: GENERAL: Patient is awake, alert and oriented. VITAL SIGNS: Temperature 98.2 degrees Fahrenheit, heart [id number] per minute, respiratory rate 20 per minute, blood pressure 130/72 mmHg, oxygen saturation 95% on room air. HEAD: Atraumatic. He is deeply jaundiced. EARS, NOSE AND THROAT: Unremarkable. HEART EXAM: Reveals tachycardia, but regular rhythm.. LUNGS: Clear to auscultation. ABDOMEN: Soft and nontender. Bowel sounds are present. EXTREMITIES: Without any cyanosis or clubbing. NEUROLOGIC: He was able to tell me the day, month and year correctly. He is aware that he is in the hospital. LABORATORY DATA: WBC 5.3, hemoglobin 10.9, hematocrit 31.6. On admission, his hemoglobin was 13.6 and hematocrit 37.7. His ethyl alcohol level was 0.144 on admission and beta-hydroxybutyrate level was 24.28. Sodium 117, potassium 5.5 on admission. However, within a few hours, his sodium was 125 and potassium 4.9. BUN 5 and creatinine 0.32. On admission, bilirubin was 12.6, AST 378, ALT 256, alkaline phosphatase 347. Yesterday, his sodium level remained between 125-127. However, yesterday afternoon, it was up to 131. Another sodium level later in the evening was 128. This morning, his sodium was 132 and potassium 3.5, BUN 6 and creatinine 0.28, glucose 149 and calcium 8.3. Total bilirubin 10.0, AST 257, ALT 206, alkaline phosphatase 278, total protein 5.5, albumin 2.3. PROBLEMS: 1. Hyponatremia. Patient had significant hyponatremia on admission. However, he had very high level of ethyl alcohol level at that time and beta-hydroxybutyrate level. Most likely, his initial hyponatremia was partly due to pseudohyponatremia. His sodium level was up to 125 within a few hours. Since then, his sodium level has improved and this morning is up to 132. He is fully awake, alert and oriented times three without any focal deficit. He is not receiving any intravenous (IV) fluids at this point, and I would recommend to not use normal saline anymore for any IV fluids. 2. Alcoholic hepatitis. Most likely, patient has acute alcoholic hepatitis and is being treated with steroids. He also has developed withdrawal symptoms and is being treated for them. Thank you for involving me in the care of Mr. Patiño. I will follow him along with you.
[2020-10-13 13:11] LABS: BLOOD UREA NITROGEN 7 MG/DL (7-18); CALCIUM LEVEL 8.4 MG/DL (8.8-10.2); CARBON DIOXIDE LEVEL 23 MEQ/L (21-32); CHLORIDE LEVEL 96 MEQ/L (98-107); CREATININE FOR GFR 0.55 MG/DL (0.70-1.30); GLOMERULAR FILTRATION RATE > 60.0 (>49); GLUCOSE, FASTING 276 MG/DL (70-100); POTASSIUM SERUM 3.2 MEQ/L (3.5-5.1); SODIUM LEVEL 128 MEQ/L (136-145)
[2020-10-13] MEDS: LORazepam 2 MG TAB PO PRN (15:11)
--- NOTE | 2020-10-13 17:19 | IPNPDOC ---
Subjective Date Seen The patient was seen on 10/13/20. Subjective Chief Complaint/HPI Denies any shortness of breath, denies any abdominal pain. Complains of some indigestion. Also complains of bilateral hip pains and bilateral knee pains. He reports that all of his body below the hips are painful and weak so he has not been able to get out of chair at home. He however was able to continue drinking beer as his friends were bringing him the drinks. He felt a few cans of beer would make him feel stronger and he would be able to get up. No signs of alcohol withdrawal. Has mild tremors in the hands. No fever or chills. Objective Physical Examination General Exam: Positive: Alert, Cooperative, No Acute Distress Eye Exam: Positive: PERRLA, Conjunctiva & lids normal, EOMI, Sclera icteric ENT Exam: Positive: Atraumatic, Mucous membr. moist/pink, Pharynx Normal, Other ENT (bitemporal wasting. ) Neck Exam: Positive: Supple; Negative: JVD, thyromegaly Chest Exam: Positive: Clear to auscultation, Normal air movement Heart Exam: Positive: Rate Normal, Regular Rhythm, Normal S1, Normal S2; Negative: Murmurs, Rubs Abdomen Exam: Positive: Normal bowel sounds, Soft; Negative: Tenderness Extremity Exam: Negative: Clubbing, Cyanosis, Edema Skin Exam: Positive: Nl turgor and temperature, Breakdown (sacral decubiti); Negative: Rash Assessment /Plan Assessment Mr. Patiño is a 59-year-old gentleman with a history of alcohol abuse, HTN, NIDDM, DLP, OA, ANAY, COPD, probably liver cirrhosis, diverticulosis, CUONG & ED who presented to the ED for jaundice, generalized weakness, weight loss, inability to ambulate for unknown duration likely about 2 weeks as per Patient and was found to have hyponatremia, cholestatic jaundice. CT abdomen and pelvis shwed enlarged fatty liver, no splenomegaly, no ascites, no CBD or intrahepatic biliary duct dilatation. No gall stones or cbd stones seen. There is colonic diverticulosis without diverticulitis. Hyponatremia Likely due to combination of beer potomania and poor oral intake. Sodium corrected rapidly after receiving 1 liter of NS int he ED. At present stable around 128 to 130 Monitor intake and output strictly. Nephrology consult appreciated Cholestatic Jaundice with transaminitis Alcoholic cirrhosis vs alcoholic hepatitis though does report and abdominal pain or RUQ tenderness Does not need prednisone for this CT abd only showed hepatomegaly with fatty liver Hepatitis panel negative consulted Dr Rg. Alcohol abuse [facility] protocol. ativan, thiamine and folate will check mag and phos. Possible COPD with exacerbation continue duonebs and prednisone Thrombocytopenia either due to cirrhosis or due to bone marrow suppression from heavy alcohol use If thrombocytopenia resolves with alcohol abstinence its likely due to bone marrow suppression. H/o Diabetes A1c 5.0 Resolved probably from malnutrition and weight loss. regular diet. Stage 2 Decubitus Sacral Ulcer air mattress / high protein diet Severe right knee OA and hip OA. Flector patch Tramadol Essential HTN Bp controlled at present. Not needing any meds. Tobacco Abuse nicotine patch / smoking cessation education Protein calorie malnutrition due to alcohol abuse. Has dropped 13 kgs in 1 year, albumin is 2.5 or even lower after hydration. wasting of small muscles of hand, bitemporal wasting. Generalized weakness deconditioning and inability to ambulate PT, OT Plan/VTE VTE Prophylaxis Ordered?: Yes VS, I&O, 24H, [facility] Vital Signs/I&O Vital Signs Date Time Temp Pulse Resp B/P (MAP) Pulse Ox O2 Delivery O2 Flow Rate FiO2 10/13/20 16:00 Room Air 10/13/20 12:58 17 10/13/20 12:00 98.5 109 136/70 (92) 94 I&O- Last 24 Hours up to 6 AM 10/13/20 06:00 Intake Total 1120 ml Output Total 1105 ml Balance 15 ml Laboratory Data 24H LABS Laboratory Tests 2 10/12/20 18:01: Anion Gap 9, Glomerular Filtration Rate > 60.0, Calcium Level 8.3L 10/12/20 21:17: Bedside Glucose (Misc Panel) 171H 10/12/20 21:39: Urine Osmolality 494, Urine Random Sodium 10 10/12/20 23:55: Anion Gap 7L, Glomerular Filtration Rate > 60.0, Calcium Level 7.9L, Total Bilirubin 8.1H, Aspartate Amino Transf (AST/SGOT) 236H, Alanine Aminotransferase (ALT/SGPT) 181H, Alkaline Phosphatase 246H, Total Protein 4.9L, Albumin 2.2L, Albumin/Globulin Ratio 0.8 10/13/20 00:07: Urine Osmolality 559, Urine Random Sodium 23 10/13/20 05:31: Immature Granulocyte % (Auto) 1.1, Neutrophils (%) (Auto) 85.5H, Lymphocytes (%) (Auto) 6.1L, Monocytes (%) (Auto) 6.7, Eosinophils (%) (Auto) 0.2, Basophils (%) (Auto) 0.4, Neutrophils # (Auto) 4.5, Lymphocytes # (Auto) 0.3L, Monocytes # (Auto) 0.4, Eosinophils # (Auto) 0.0, Basophils # (Auto) 0.0, Nucleated Red Blood Cells % (auto) 0.0, Anion Gap 9, Glomerular Filtration Rate > 60.0, Calc ium Level 8.3L, Phosphorus Level 2.5#, Magnesium Level 2.1, Total Bilirubin 10.0H, Aspartate Amino Transf (AST/SGOT) 257H, Alanine Aminotransferase (ALT/SGPT) 206H, Alkaline Phosphatase 278H, Total Protein 5.5L, Albumin 2.3L, Albumin/Globulin Ratio 0.7 10/13/20 06:02: Urine Osmolality 319 10/13/20 11:35: Anion Gap 9, Glomerular Filtration Rate > 60.0, Calcium Level 8.4L CBC/BMP Laboratory Tests 10/12/20 18:01 10/12/20 23:55 10/13/20 05:31 10/13/20 11:35 HARMONY GONZALEZ MD Oct 13, 2020 17:19
[2020-10-13] MEDS ORDERED: POTASSIUM CHLORIDE 10 MEQ SR TABLET PO ONE (18:00)
[2020-10-13] MEDS: NICOTINE 7 MG/24 HR TRANSDERMAL TD SCH (21:30)
[2020-10-13 22:00] VITALS: BP 134/74
[2020-10-14] VITALS: BP 131/73
[2020-10-14] MEDS: IPRATROPIUM 0.5MG/ALBUTEROL 2.5MG INH SOL UD 3ML (DUONEB) NEB SCH ×4 (02:09→20:07)
[2020-10-14 04:00] VITALS: BP 117/89
[2020-10-14 05:54] LABS: BASO % 0.1 % (0.0-1.0); EOS % 0.4 % (0.0-3.0); HEMATOCRIT 30.9 % (42.0-52.0); HEMOGLOBIN 10.6 g/dl (13.5-17.5); LYMPH # 0.9 10^3/uL (1.5-5.0); LYMPH % 12.8 % (24.0-44.0); MEAN CORPUSCULAR HEMOGLOBIN 33.2 pg (27.0-33.0); MEAN CORPUSCULAR HGB CONC 34.3 g/dl (32.0-36.5); MEAN CORPUSCULAR VOLUME 96.9 fl (80.0-96.0); MONO # 0.7 10^3/uL (0.0-0.8); MONO % 10.2 % (2.0-8.0); NEUTROPHILS # 5.1 10^3/uL (1.5-8.5); PLATELET COUNT, AUTOMATED 133 10^3/uL (150-450); RED BLOOD COUNT 3.19 10^6/uL (4.30-6.10); WHITE BLOOD COUNT 6.9 10^3/uL (4.0-10.0)
[2020-10-14 06:00] VITALS: BP 134/74
[2020-10-14 06:26] LABS: ALBUMIN 2.2 GM/DL (3.2-5.2); ALT/SGPT 189 U/L (12-78); BILIRUBIN,TOTAL 8.5 MG/DL (0.2-1.0); BLOOD UREA NITROGEN 11 MG/DL (7-18); CALCIUM LEVEL 7.9 MG/DL (8.8-10.2); CARBON DIOXIDE LEVEL 29 MEQ/L (21-32); CHLORIDE LEVEL 97 MEQ/L (98-107); CREATININE FOR GFR 0.41 MG/DL (0.70-1.30); GLOMERULAR FILTRATION RATE > 60.0 (>49); GLUCOSE, FASTING 117 MG/DL (70-100); PHOSPHORUS LEVEL 2.7 MG/DL (2.5-4.9); POTASSIUM SERUM 3.4 MEQ/L (3.5-5.1); SODIUM LEVEL 132 MEQ/L (136-145); TOTAL PROTEIN 5.1 GM/DL (6.4-8.2)
[2020-10-14 08:00] VITALS: BP 114/67
[2020-10-14] MEDS: DICLOFENAC EPOLAMINE 1.3 % PATCH TOP SCH ×2 (08:18→21:11)
[2020-10-14] MEDS: PANTOPRAZOLE 40MG TAB (PROTONIX) PO SCH (08:24)
[2020-10-14] MEDS: FOLIC ACID 1 MG TAB PO SCH (08:24)
[2020-10-14] MEDS: POTASSIUM CHLORIDE 10 MEQ SR TABLET PO SCH (08:24)
[2020-10-14] MEDS: THIAMINE 100 MG TAB PO SCH (08:24)
[2020-10-14] MEDS: MULTIVITAMINS/MINERALS THERAP 1 TAB PO SCH (08:24)
[2020-10-14] MEDS: predniSONE 20 MG TAB PO SCH (08:24)
--- NOTE | 2020-10-14 09:58 | IPNPDOC ---
Subjective Date Seen The patient was seen on 10/14/20. Subjective Chief Complaint/HPI Having tremors in hands so having difficulty in feeding himself. No signs of withdrawal. No fever or chills, hip and knee pin a little better. Objective Physical Examination General Exam: Positive: Alert, Cooperative, No Acute Distress Eye Exam: Positive: PERRLA, Conjunctiva & lids normal, EOMI, Sclera icteric ENT Exam: Positive: Atraumatic, Mucous membr. moist/pink, Pharynx Normal, Other ENT (bitemporal wasting. ) Neck Exam: Positive: Supple; Negative: JVD, thyromegaly Chest Exam: Positive: Clear to auscultation, Normal air movement Heart Exam: Positive: Rate Normal, Regular Rhythm, Normal S1, Normal S2; Negative: Murmurs, Rubs Abdomen Exam: Positive: Normal bowel sounds, Soft; Negative: Tenderness Extremity Exam: Negative: Clubbing, Cyanosis, Edema Skin Exam: Positive: Nl turgor and temperature, Breakdown (sacral decubiti); Negative: Rash Assessment /Plan Assessment Mr. Patiño is a 59-year-old gentleman with a history of alcohol abuse, HTN, NIDDM, DLP, OA, ANAY, COPD, probably liver cirrhosis, diverticulosis, CUONG & ED who presented to the ED for jaundice, generalized weakness, weight loss, inability to ambulate for unknown duration likely about 2 weeks as per Patient and was found to have hyponatremia, cholestatic jaundice. CT abdomen and pelvis shwed enlarged fatty liver, no splenomegaly, no ascites, no CBD or intrahepatic biliary duct dilatation. No gall stones or cbd stones seen. There is colonic diverticulosis without diverticulitis. Hyponatremia now resolved. Likely due to combination of beer potomania and poor oral intake. Sodium corrected rapidly after receiving 1 liter of NS in the ED. At present stable around 130 Monitor intake and output strictly. Nephrology consult appreciated Cholestatic Jaundice with transaminitis Alcoholic cirrhosis vs alcoholic hepatitis though does report abdominal pain or RUQ tenderness Does not need prednisone for this CT abd only showed hepatomegaly with fatty liver Hepatitis panel negative consulted Dr Rg. Alcohol abuse [facility] protocol. ativan, thiamine and folate will check mag and phos. Possible COPD with exacerbation continue duonebs and prednisone Thrombocytopenia either due to cirrhosis or due to bone marrow suppression from heavy alcohol use If thrombocytopenia resolves with alcohol abstinence its likely due to bone marrow suppression. H/o Diabetes A1c 5.0 Resolved probably from malnutrition and weight loss. regular diet. Stage 2 Decubitus Sacral Ulcer air mattress / high protein diet Severe right knee OA and hip OA. Flector patch Tramadol Essential HTN Bp controlled at present. Not needing any meds. Tobacco Abuse nicotine patch / smoking cessation education Protein calorie malnutrition due to alcohol abuse. Has dropped 13 kgs in 1 year, albumin is 2.5 or even lower after hydration. wasting of small muscles of hand, bitemporal wasting. Generalized weakness deconditioning and inability to ambulate PT, OT Plan/VTE VTE Prophylaxis Ordered?: Yes VS, I&O, 24H, Fishbone Vital Signs/I&O Vital Signs Date Time Temp Pulse Resp B/P (MAP) Pulse Ox O2 Delivery O2 Flow Rate FiO2 10/14/20 08:00 97.8 120 21 114/67 (83) 95 Room Air I&O- Last 24 Hours up to 6 AM 10/14/20 06:00 Intake Total 660 ml Output Total 1980 ml Balance -1320 ml Laboratory Data 24H LABS Laboratory Tests 2 10/13/20 11:35: Anion Gap 9, Glomerular Filtration Rate > 60.0, Calcium Level 8.4L 10/14/20 05:38: Anion Gap 6L, Glomerular Filtration Rate > 60.0, Calcium Level 7.9L, Immature Granulocyte % (Auto) 1.5, Neutrophils (%) (Auto) 75.0H, Lymphocytes (%) (Auto) 12.8L, Monocytes (%) (Auto) 10.2H, Eosinophils (%) (Auto) 0.4, Basophils (%) (Auto) 0.1, Neutrophils # (Auto) 5.1, Lymphocytes # (Auto) 0.9L, Monocytes # (Auto) 0.7, Eosinophils # (Auto) 0.0, Basophils # (Auto) 0.0, Nucleated Red Blood Cells % (auto) 0.7H, Phosphorus Level 2.7, Total Bilirubin 8.5H, Aspartate Amino Transf (AST/SGOT) 216H, Alanine Aminotransferase (ALT/SGPT) 189H, Alkaline Phosphatase 245H, Total Protein 5.1L, Albumin 2.2L, Albumin/Globulin Ratio 0.8 CBC/BMP Laboratory Tests 10/13/20 11:35 10/14/20 05:38 HARMONY GONZALEZ MD Oct 14, 2020 09:58
[2020-10-14 12:00] VITALS: BP 138/67
--- NOTE | 2020-10-14 13:39 | IPN ---
PROGRESS NOTE DATE: 10/14/2020 Mr. Patiño was seen yesterday for hyponatremia. His hyponatremia has already improved, and sodium level has remained between 128-132 for the last 24 hours. He has been completely asymptomatic. At this point, I do not feel that he needs further nephrology service. I am signing off his case.
[2020-10-14 21:08] VITALS: BP 133/69
[2020-10-14] MEDS: NICOTINE 7 MG/24 HR TRANSDERMAL TD SCH (21:11)
[2020-10-15] VITALS (7 sets, daily range): BP systolic 121–140; BP diastolic 71–78
[2020-10-15] MEDS: IPRATROPIUM 0.5MG/ALBUTEROL 2.5MG INH SOL UD 3ML (DUONEB) NEB SCH ×4 (01:51→19:33)
[2020-10-15 05:39] LABS: BASO % 0.4 % (0.0-1.0); EOS % 0.3 % (0.0-3.0); HEMATOCRIT 29.6 % (42.0-52.0); LYMPH # 1.1 10^3/uL (1.5-5.0); LYMPH % 14.4 % (24.0-44.0); MEAN CORPUSCULAR HEMOGLOBIN 33.1 pg (27.0-33.0); MEAN CORPUSCULAR HGB CONC 33.8 g/dl (32.0-36.5); MONO # 0.9 10^3/uL (0.0-0.8); MONO % 11.2 % (2.0-8.0); NEUTROPHILS # 5.6 10^3/uL (1.5-8.5); PLATELET COUNT, AUTOMATED 153 10^3/uL (150-450); RED BLOOD COUNT 3.02 10^6/uL (4.30-6.10); WHITE BLOOD COUNT 7.8 10^3/uL (4.0-10.0)
[2020-10-15 06:14] LABS: ALBUMIN 2.1 GM/DL (3.2-5.2); ALT/SGPT 197 U/L (12-78); BLOOD UREA NITROGEN 9 MG/DL (7-18); CALCIUM LEVEL 8.2 MG/DL (8.8-10.2); CARBON DIOXIDE LEVEL 26 MEQ/L (21-32); CHLORIDE LEVEL 100 MEQ/L (98-107); CREATININE FOR GFR 0.34 MG/DL (0.70-1.30); GLOMERULAR FILTRATION RATE > 60.0 (>49); GLUCOSE, FASTING 90 MG/DL (70-100); PHOSPHORUS LEVEL 2.5 MG/DL (2.5-4.9); POTASSIUM SERUM 3.6 MEQ/L (3.5-5.1); SODIUM LEVEL 135 MEQ/L (136-145); TOTAL PROTEIN 5.1 GM/DL (6.4-8.2)
[2020-10-15] MEDS: predniSONE 20 MG TAB PO SCH (08:02)
[2020-10-15] MEDS: FOLIC ACID 1 MG TAB PO SCH (08:02)
[2020-10-15] MEDS: DICLOFENAC EPOLAMINE 1.3 % PATCH TOP SCH ×2 (08:02→22:20)
[2020-10-15] MEDS: MULTIVITAMINS/MINERALS THERAP 1 TAB PO SCH (08:02)
[2020-10-15] MEDS: POTASSIUM CHLORIDE 10 MEQ SR TABLET PO SCH (08:05)
[2020-10-15] MEDS: PANTOPRAZOLE 40MG TAB (PROTONIX) PO SCH (08:05)
[2020-10-15] MEDS: traMADol 50 MG TAB PO PRN (12:05)
[2020-10-15] MEDS ORDERED: oxyCODONE 5MG TAB PO PRN (13:25)
--- NOTE | 2020-10-15 13:35 | IPNPDOC ---
Subjective Date Seen The patient was seen on 10/15/20. Subjective Chief Complaint/HPI Complains of pain at both the hips , legs and knees. He is very motivated to work with PT and be able to walk. Objective Physical Examination General Exam: Positive: Alert, Cooperative, No Acute Distress Eye Exam: Positive: PERRLA, Conjunctiva & lids normal, EOMI, Sclera icteric ENT Exam: Positive: Atraumatic, Mucous membr. moist/pink, Pharynx Normal, Other ENT (bitemporal wasting. ) Neck Exam: Positive: Supple; Negative: JVD, thyromegaly Chest Exam: Positive: Clear to auscultation, Normal air movement Heart Exam: Positive: Rate Normal, Regular Rhythm, Normal S1, Normal S2; Negative: Murmurs, Rubs Abdomen Exam: Positive: Normal bowel sounds, Soft; Negative: Tenderness Extremity Exam: Negative: Clubbing, Cyanosis, Edema Skin Exam: Positive: Nl turgor and temperature, Breakdown (sacral decubiti); Negative: Rash Assessment /Plan Assessment Mr. Patiño is a 59-year-old gentleman with a history of alcohol abuse, HTN, NIDDM, DLP, OA, ANAY, COPD, probably liver cirrhosis, diverticulosis, CUONG & ED who presented to the ED for jaundice, generalized weakness, weight loss, inab ility to ambulate for unknown duration likely about 2 weeks as per Patient and was found to have hyponatremia, cholestatic jaundice. CT abdomen and pelvis shwed enlarged fatty liver, no splenomegaly, no ascites, no CBD or intrahepatic biliary duct dilatation. No gall stones or cbd stones seen. There is colonic diverticulosis without diverticulitis. Hyponatremia now resolved. Due to combination of beer potomania and poor oral intake. 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 Alcohol abuse [facility] protocol. ativan, thiamine and folate will check mag and phos. COPD with exacerbation Now resolved. continue duonebs and prednisone Thrombocytopenia either due to cirrhosis or due to bone marrow suppression from heavy alcohol use If thrombocytopenia resolves with alcohol abstinence its likely due to bone marrow suppression. H/o Diabetes A1c 5.0 Resolved probably from malnutrition and weight loss. regular diet. Stage 2 Decubitus Sacral Ulcer air mattress / high protein diet Severe right knee OA and hip OA. Flector patch Tramadol, oxycodone Essential HTN Bp controlled at present. Not needing any meds. Tobacco Abuse nicotine patch / smoking cessation education Protein calorie malnutrition due to alcohol abuse. Has dropped 13 kgs in 1 year, albumin is 2.5 or even lower after hydration. wasting of small muscles of hand, bitemporal wasting. Generalized weakness deconditioning and inability to ambulate PT, OT Plan/VTE VTE Prophylaxis Ordered?: Yes VS, I&O, 24H, Fishbone Vital Signs/I&O Vital Signs Date Time Temp Pulse Resp B/P (MAP) Pulse Ox O2 Delivery O2 Flow Rate FiO2 10/15/20 12:39 18 10/15/20 12:00 98.1 108 121/71 (88) 97 Room Air I&O- Last 24 Hours up to 6 AM 10/15/20 06:00 Intake Total 840 ml Output Total 1650 ml Balance -810 ml Laboratory Data 24H LABS Laboratory Tests 2 10/15/20 05:26: Immature Granulocyte % (Auto) 1.7, Neutrophils (%) (Auto) 72.0H, Lymphocytes (%) (Auto) 14.4L, Monocytes (%) (Auto) 11.2H, Eosinophils (%) (Auto) 0.3, Basophils (%) (Auto) 0.4, Neutrophils # (Auto) 5.6, Lymphocytes # (Auto) 1.1L, Monocytes # (Auto) 0.9H, Eosinophils # (Auto) 0.0, Basophils # (Auto) 0.0, Nucleated Red Blood Cells % (auto) 0.3H, Anion Gap 9, Glomerular Filtration Rate > 60.0, Calcium Level 8.2L, Phosphorus Level 2.5, Total Bilirubin 8.0H, Aspartate Amino Transf (AST/SGOT) 214H, Alanine Aminotransferase (ALT/SGPT) 197H, Alkaline Phosphatase 277H, Total Protein 5.1L, Albumin 2.1L, Albumin/Globulin Ratio 0.7 CBC/BMP Laboratory Tests 10/15/20 05:26 HARMONY GONZALEZ MD Oct 15, 2020 13:35
[2020-10-15] MEDS: traMADol 50 MG TAB PO SCH (20:31)
[2020-10-15] MEDS: NICOTINE 7 MG/24 HR TRANSDERMAL TD SCH (22:21)
[2020-10-16 06:00] VITALS: BP 110/71
[2020-10-16 06:11] LABS: BASO % 0.3 % (0.0-1.0); EOS # 0.1 10^3/uL (0.0-0.5); EOS % 0.6 % (0.0-3.0); HEMATOCRIT 30.3 % (42.0-52.0); HEMOGLOBIN 10.1 g/dl (13.5-17.5); LYMPH # 0.8 10^3/uL (1.5-5.0); LYMPH % 10.3 % (24.0-44.0); MEAN CORPUSCULAR HGB CONC 33.3 g/dl (32.0-36.5); MONO # 0.9 10^3/uL (0.0-0.8); MONO % 11.7 % (2.0-8.0); NEUTROPHILS # 6.1 10^3/uL (1.5-8.5); NEUTROPHILS % 76.1 % (36.0-66.0); PLATELET COUNT, AUTOMATED 183 10^3/uL (150-450); RED BLOOD COUNT 3.06 10^6/uL (4.30-6.10)
[2020-10-16 06:37] LABS: ALT/SGPT 206 U/L (12-78); BILIRUBIN,TOTAL 7.7 MG/DL (0.2-1.0); BLOOD UREA NITROGEN 11 MG/DL (7-18); CARBON DIOXIDE LEVEL 26 MEQ/L (21-32); CHLORIDE LEVEL 102 MEQ/L (98-107); CREATININE FOR GFR 0.27 MG/DL (0.70-1.30); GLOMERULAR FILTRATION RATE > 60.0 (>49); GLUCOSE, FASTING 114 MG/DL (70-100); PHOSPHORUS LEVEL 3.5 MG/DL (2.5-4.9); POTASSIUM SERUM 3.6 MEQ/L (3.5-5.1); SODIUM LEVEL 135 MEQ/L (136-145); TOTAL PROTEIN 5.1 GM/DL (6.4-8.2)
[2020-10-16] MEDS: IPRATROPIUM 0.5MG/ALBUTEROL 2.5MG INH SOL UD 3ML (DUONEB) NEB SCH ×3 (07:20→19:10)
[2020-10-16] MEDS: PANTOPRAZOLE 40MG TAB (PROTONIX) PO SCH (09:18)
[2020-10-16] MEDS: predniSONE 10 MG TAB PO SCH (09:18)
[2020-10-16] MEDS: POTASSIUM CHLORIDE 10 MEQ SR TABLET PO SCH (09:18)
[2020-10-16] MEDS: MULTIVITAMINS/MINERALS THERAP 1 TAB PO SCH (09:18)
[2020-10-16] MEDS: FOLIC ACID 1 MG TAB PO SCH (09:18)
[2020-10-16] MEDS: traMADol 50 MG TAB PO SCH ×3 (09:19→20:10)
[2020-10-16] MEDS: DICLOFENAC EPOLAMINE 1.3 % PATCH TOP SCH ×2 (09:28→20:11)
[2020-10-16 14:00] VITALS: BP 138/68
[2020-10-16] MEDS: NICOTINE 7 MG/24 HR TRANSDERMAL TD SCH (20:11)
[2020-10-17 06:00] VITALS: BP 138/89
[2020-10-17 06:44] LABS: BASO % 0.4 % (0.0-1.0); EOS # 0.1 10^3/uL (0.0-0.5); EOS % 0.6 % (0.0-3.0); HEMATOCRIT 31.5 % (42.0-52.0); HEMOGLOBIN 10.7 g/dl (13.5-17.5); LYMPH # 1.1 10^3/uL (1.5-5.0); LYMPH % 13.3 % (24.0-44.0); MEAN CORPUSCULAR HEMOGLOBIN 34.1 pg (27.0-33.0); MEAN CORPUSCULAR VOLUME 100.3 fl (80.0-96.0); MONO # 0.8 10^3/uL (0.0-0.8); MONO % 10.3 % (2.0-8.0); NEUTROPHILS % 74.2 % (36.0-66.0); PLATELET COUNT, AUTOMATED 220 10^3/uL (150-450); RED BLOOD COUNT 3.14 10^6/uL (4.30-6.10)
[2020-10-17 07:08] LABS: ALBUMIN 2.1 GM/DL (3.2-5.2); ALT/SGPT 211 U/L (12-78); BILIRUBIN,TOTAL 7.4 MG/DL (0.2-1.0); BLOOD UREA NITROGEN 14 MG/DL (7-18); CALCIUM LEVEL 8.2 MG/DL (8.8-10.2); CARBON DIOXIDE LEVEL 27 MEQ/L (21-32); CHLORIDE LEVEL 102 MEQ/L (98-107); CREATININE FOR GFR 0.28 MG/DL (0.70-1.30); GLOMERULAR FILTRATION RATE > 60.0 (>49); GLUCOSE, FASTING 78 MG/DL (70-100); PHOSPHORUS LEVEL 3.3 MG/DL (2.5-4.9); POTASSIUM SERUM 3.8 MEQ/L (3.5-5.1); SODIUM LEVEL 134 MEQ/L (136-145); TOTAL PROTEIN 5.2 GM/DL (6.4-8.2)
[2020-10-17] MEDS: IPRATROPIUM 0.5MG/ALBUTEROL 2.5MG INH SOL UD 3ML (DUONEB) NEB SCH ×3 (07:40→19:54)
[2020-10-17] MEDS: FOLIC ACID 1 MG TAB PO SCH (08:43)
[2020-10-17] MEDS: PANTOPRAZOLE 40MG TAB (PROTONIX) PO SCH (08:43)
[2020-10-17] MEDS: MULTIVITAMINS/MINERALS THERAP 1 TAB PO SCH (08:43)
[2020-10-17] MEDS: traMADol 50 MG TAB PO SCH ×3 (08:44→21:13)
[2020-10-17] MEDS: POTASSIUM CHLORIDE 10 MEQ SR TABLET PO SCH (08:45)
[2020-10-17] MEDS: predniSONE 10 MG TAB PO SCH (08:45)
[2020-10-17] MEDS: DICLOFENAC EPOLAMINE 1.3 % PATCH TOP SCH ×2 (08:45→21:12)
[2020-10-17] MEDS: NICOTINE 7 MG/24 HR TRANSDERMAL TD SCH (21:12)
[2020-10-18 06:00] VITALS: BP 159/83
[2020-10-18] MEDS: IPRATROPIUM 0.5MG/ALBUTEROL 2.5MG INH SOL UD 3ML (DUONEB) NEB SCH ×3 (07:13→19:33)
[2020-10-18] MEDS: PANTOPRAZOLE 40MG TAB (PROTONIX) PO SCH (08:30)
[2020-10-18] MEDS: FOLIC ACID 1 MG TAB PO SCH (08:30)
[2020-10-18] MEDS: MULTIVITAMINS/MINERALS THERAP 1 TAB PO SCH (08:30)
[2020-10-18] MEDS: POTASSIUM CHLORIDE 10 MEQ SR TABLET PO SCH (08:31)
[2020-10-18] MEDS: DICLOFENAC EPOLAMINE 1.3 % PATCH TOP SCH ×2 (08:31→20:19)
[2020-10-18] MEDS: traMADol 50 MG TAB PO SCH ×3 (08:32→20:18)
[2020-10-18] MEDS: TRIAMCINOLONE ACET 0.1% CREAM 80 GM TOP SCH ×2 (13:24→20:19)
[2020-10-18] MEDS: NICOTINE 7 MG/24 HR TRANSDERMAL TD SCH (20:19)
[2020-10-19 06:00] VITALS: BP 122/74
[2020-10-19] MEDS: IPRATROPIUM 0.5MG/ALBUTEROL 2.5MG INH SOL UD 3ML (DUONEB) NEB SCH ×3 (07:31→20:00)
[2020-10-19] MEDS: FOLIC ACID 1 MG TAB PO SCH (08:08)
[2020-10-19] MEDS: PANTOPRAZOLE 40MG TAB (PROTONIX) PO SCH (08:08)
[2020-10-19] MEDS: MULTIVITAMINS/MINERALS THERAP 1 TAB PO SCH (08:09)
[2020-10-19] MEDS: POTASSIUM CHLORIDE 10 MEQ SR TABLET PO SCH (08:09)
[2020-10-19] MEDS: traMADol 50 MG TAB PO SCH ×3 (08:09→21:04)
[2020-10-19] MEDS: TRIAMCINOLONE ACET 0.1% CREAM 80 GM TOP SCH ×2 (08:10→21:05)
[2020-10-19] MEDS: DICLOFENAC EPOLAMINE 1.3 % PATCH TOP SCH ×2 (08:10→21:03)
--- NOTE | 2020-10-19 14:41 | IPNPDOC ---
Text Note Date of Service The patient was seen on 10/19/20. NOTE Subjective: -Pleasant, conversation. Pleased by his progress with PT and motivated. Also trying to improve his eating. Objective Vitals: see below General: Alert, Cooperative, No Acute Distress Eyes: Icteric sclerae, PERRLA, EOMI ENT: Atraumatic, Mucous membr. moist/pink with bitemporal wasting Neck: Supple, no JVD Chest: Clear to auscultation, Normal air movement Heart: Rate Normal, Regular Rhythm, Normal S1, Normal S2, no m/r/g Abdomen: Normal bowel sounds, Soft, NTND Extremities: no noted edema, WWP Skin Exam: Nl turgor and temperature, has a sacral decubitus ulcer, jaundice Labs: reviewed Assessment: 59-year-old gentleman with a history of alcohol abuse, HTN, NIDDM, DLP, OA, ANAY, COPD, diverticulosis, CUONG & ED who presented to the ED for jaundice, generalized weakness, weight loss, inability to ambulate for unknown duration likely about 2 weeks as per patient and was found to have hyponatremia, cholestatic jaundice with alcoholic hepatitis. Hyponatremia now resolved: -Due to combination of beer potomania and poor oral intake. -continue to encourage good PO Cholestatic Jaundice with transaminitis 2/2 alcoholic hepatitis -Maddrey's discriminant function of only 7 with a good prognosis and no evidence of benefit from prednisone -CT abd showed hepatomegaly with fatty liver -Hepatitis panel negative -will refer to GI on discharge. Alcohol abuse -[facility] protocol. -ativan, thiamine and folate COPD with exacerbation: resolved -continue duonebs and prednisone Thrombocytopenia -Likely due to bone marrow suppression from heavy alcohol use H/o Diabetes -A1c 5.0 -Resolved probably from malnutrition and weight loss. -regular diet. Stage 2 Decubitus Sacral Ulcer -air mattress / high protein diet Severe right knee OA and hip OA. -Flector patch -Tramadol, oxycodone Essential HTN -Bp controlled at present. Not needing any meds. Tobacco Abuse -nicotine patch / smoking cessation education Protein calorie malnutrition: encourage nutrition -due to alcohol abuse. -Has dropped 13 kgs in 1 year, albumin is 2.5 or even lower after hydration. wasting of small muscles of hand, bitemporal wasting. Generalized weakness deconditioning and inability to ambulate -PT, OT VS,Fishbone, I+O VS, Fishbone, I+O Vital Signs Date Time Temp Pulse Resp B/P (MAP) Pulse Ox O2 Delivery O2 Flow Rate FiO2 10/19/20 08:09 17 Room Air 10/19/20 06:00 98.9 70 122/74 (90) 98 I&O- Last 24 Hours up to 6 AM 10/19/20 06:00 Intake Total 1380 ml Output Total 925 ml Balance 455 ml CHARISSA MANDEL MD Oct 19, 2020 14:41
[2020-10-19] MEDS: NICOTINE 7 MG/24 HR TRANSDERMAL TD SCH (21:04)
[2020-10-20 06:00] VITALS: BP 129/71
[2020-10-20] MEDS: IPRATROPIUM 0.5MG/ALBUTEROL 2.5MG INH SOL UD 3ML (DUONEB) NEB SCH ×3 (07:05→19:33)
[2020-10-20] MEDS: PANTOPRAZOLE 40MG TAB (PROTONIX) PO SCH (09:56)
[2020-10-20] MEDS: FOLIC ACID 1 MG TAB PO SCH (09:56)
[2020-10-20] MEDS: POTASSIUM CHLORIDE 10 MEQ SR TABLET PO SCH (09:56)
[2020-10-20] MEDS: MULTIVITAMINS/MINERALS THERAP 1 TAB PO SCH (09:57)
[2020-10-20] MEDS: traMADol 50 MG TAB PO SCH ×3 (09:57→20:07)
[2020-10-20] MEDS: TRIAMCINOLONE ACET 0.1% CREAM 80 GM TOP SCH ×2 (09:58→20:08)
[2020-10-20] MEDS: DICLOFENAC EPOLAMINE 1.3 % PATCH TOP SCH ×2 (09:58→20:07)
[2020-10-20] MEDS: NICOTINE 7 MG/24 HR TRANSDERMAL TD SCH (20:07)
[2020-10-21 06:00] VITALS: BP 140/80
[2020-10-21] MEDS: IPRATROPIUM 0.5MG/ALBUTEROL 2.5MG INH SOL UD 3ML (DUONEB) NEB SCH ×3 (08:16→20:35)
[2020-10-21] MEDS: FOLIC ACID 1 MG TAB PO SCH (09:57)
[2020-10-21] MEDS: MULTIVITAMINS/MINERALS THERAP 1 TAB PO SCH (09:57)
[2020-10-21] MEDS: PANTOPRAZOLE 40MG TAB (PROTONIX) PO SCH (09:57)
[2020-10-21] MEDS: DICLOFENAC EPOLAMINE 1.3 % PATCH TOP SCH ×2 (09:58→20:34)
[2020-10-21] MEDS: POTASSIUM CHLORIDE 10 MEQ SR TABLET PO SCH (09:58)
[2020-10-21] MEDS: TRIAMCINOLONE ACET 0.1% CREAM 80 GM TOP SCH ×2 (09:59→20:34)
[2020-10-21] MEDS: traMADol 50 MG TAB PO SCH ×3 (09:59→20:31)
[2020-10-21] MEDS: NICOTINE 7 MG/24 HR TRANSDERMAL TD SCH (20:33)
[2020-10-21 22:00] VITALS: BP 125/72
[2020-10-22 06:00] VITALS: BP 146/78
[2020-10-22] MEDS: IPRATROPIUM 0.5MG/ALBUTEROL 2.5MG INH SOL UD 3ML (DUONEB) NEB SCH ×3 (07:20→19:37)
[2020-10-22] MEDS: FOLIC ACID 1 MG TAB PO SCH (09:17)
[2020-10-22] MEDS: MULTIVITAMINS/MINERALS THERAP 1 TAB PO SCH (09:17)
[2020-10-22] MEDS: traMADol 50 MG TAB PO SCH ×3 (09:18→20:50)
[2020-10-22] MEDS: PANTOPRAZOLE 40MG TAB (PROTONIX) PO SCH (09:18)
[2020-10-22] MEDS: POTASSIUM CHLORIDE 10 MEQ SR TABLET PO SCH (09:18)
[2020-10-22] MEDS: TRIAMCINOLONE ACET 0.1% CREAM 80 GM TOP SCH ×2 (09:18→20:51)
[2020-10-22] MEDS: DICLOFENAC EPOLAMINE 1.3 % PATCH TOP SCH ×2 (09:19→20:50)
[2020-10-22 14:32] LABS: HEMATOCRIT 30.9 % (42.0-52.0); HEMOGLOBIN 10.4 g/dl (13.5-17.5); MEAN CORPUSCULAR HEMOGLOBIN 34.4 pg (27.0-33.0); MEAN CORPUSCULAR HGB CONC 33.7 g/dl (32.0-36.5); MEAN CORPUSCULAR VOLUME 102.3 fl (80.0-96.0); PLATELET COUNT, AUTOMATED 319 10^3/uL (150-450); RED BLOOD COUNT 3.02 10^6/uL (4.30-6.10); WHITE BLOOD COUNT 10.1 10^3/uL (4.0-10.0)
[2020-10-22 14:52] LABS: BLOOD UREA NITROGEN 11 MG/DL (7-18); CALCIUM LEVEL 7.7 MG/DL (8.8-10.2); CARBON DIOXIDE LEVEL 24 MEQ/L (21-32); CHLORIDE LEVEL 102 MEQ/L (98-107); CREATININE FOR GFR 0.38 MG/DL (0.70-1.30); GLOMERULAR FILTRATION RATE > 60.0 (>49); GLUCOSE, FASTING 125 MG/DL (70-100); POTASSIUM SERUM 4.2 MEQ/L (3.5-5.1); SODIUM LEVEL 134 MEQ/L (136-145)
[2020-10-22] MEDS: CEPHALEXIN 250MG CAPSULE PO SCH ×2 (16:58→20:49)
[2020-10-22 20:00] VITALS: BP 129/71
[2020-10-22] MEDS: NICOTINE 7 MG/24 HR TRANSDERMAL TD SCH (20:49)
[2020-10-23 06:00] VITALS: BP 143/84
[2020-10-23 06:14] LABS: HEMATOCRIT 31.8 % (42.0-52.0); HEMOGLOBIN 10.7 g/dl (13.5-17.5); MEAN CORPUSCULAR HEMOGLOBIN 34.5 pg (27.0-33.0); MEAN CORPUSCULAR HGB CONC 33.6 g/dl (32.0-36.5); MEAN CORPUSCULAR VOLUME 102.6 fl (80.0-96.0); PLATELET COUNT, AUTOMATED 307 10^3/uL (150-450); WHITE BLOOD COUNT 9.4 10^3/uL (4.0-10.0)
[2020-10-23 06:43] LABS: BLOOD UREA NITROGEN 9 MG/DL (7-18); CALCIUM LEVEL 8.2 MG/DL (8.8-10.2); CARBON DIOXIDE LEVEL 25 MEQ/L (21-32); CHLORIDE LEVEL 104 MEQ/L (98-107); CREATININE FOR GFR 0.31 MG/DL (0.70-1.30); GLOMERULAR FILTRATION RATE > 60.0 (>49); GLUCOSE, FASTING 104 MG/DL (70-100); POTASSIUM SERUM 3.7 MEQ/L (3.5-5.1); SODIUM LEVEL 136 MEQ/L (136-145)
[2020-10-23] MEDS: IPRATROPIUM 0.5MG/ALBUTEROL 2.5MG INH SOL UD 3ML (DUONEB) NEB SCH ×3 (07:42→20:18)
[2020-10-23] MEDS: DICLOFENAC EPOLAMINE 1.3 % PATCH TOP SCH ×2 (10:17→20:44)
[2020-10-23] MEDS: FOLIC ACID 1 MG TAB PO SCH (10:18)
[2020-10-23] MEDS: TRIAMCINOLONE ACET 0.1% CREAM 80 GM TOP SCH ×2 (10:18→20:44)
[2020-10-23] MEDS: MULTIVITAMINS/MINERALS THERAP 1 TAB PO SCH (10:18)
[2020-10-23] MEDS: PANTOPRAZOLE 40MG TAB (PROTONIX) PO SCH (10:18)
[2020-10-23] MEDS: CEPHALEXIN 250MG CAPSULE PO SCH ×4 (10:18→20:34)
[2020-10-23] MEDS: traMADol 50 MG TAB PO SCH ×3 (10:18→20:44)
[2020-10-23] MEDS: POTASSIUM CHLORIDE 10 MEQ SR TABLET PO SCH (10:19)
[2020-10-23] MEDS: NICOTINE 7 MG/24 HR TRANSDERMAL TD SCH (20:34)
[2020-10-23 22:00] VITALS: BP 120/67
[2020-10-24 06:00] VITALS: BP 135/73
[2020-10-24] MEDS: IPRATROPIUM 0.5MG/ALBUTEROL 2.5MG INH SOL UD 3ML (DUONEB) NEB SCH ×3 (07:02→20:38)
[2020-10-24] MEDS: traMADol 50 MG TAB PO SCH ×3 (09:58→22:23)
[2020-10-24] MEDS: PANTOPRAZOLE 40MG TAB (PROTONIX) PO SCH (09:58)
[2020-10-24] MEDS: POTASSIUM CHLORIDE 10 MEQ SR TABLET PO SCH (09:58)
[2020-10-24] MEDS: FOLIC ACID 1 MG TAB PO SCH (09:58)
[2020-10-24] MEDS: CEPHALEXIN 250MG CAPSULE PO SCH ×4 (09:58→22:23)
[2020-10-24] MEDS: MULTIVITAMINS/MINERALS THERAP 1 TAB PO SCH (09:58)
[2020-10-24] MEDS: DICLOFENAC EPOLAMINE 1.3 % PATCH TOP SCH ×2 (09:59→22:24)
[2020-10-24] MEDS: TRIAMCINOLONE ACET 0.1% CREAM 80 GM TOP SCH ×2 (09:59→22:24)
[2020-10-24] MEDS: NICOTINE 7 MG/24 HR TRANSDERMAL TD SCH (22:23)
[2020-10-25 06:00] VITALS: BP 140/78
[2020-10-25] MEDS ORDERED: VITMTA PO (07:17)
[2020-10-25] MEDS ORDERED: TRAM50TA2 PO (07:17)
[2020-10-25] MEDS ORDERED: FOLI1TAB11 PO (07:17)
[2020-10-25] MEDS ORDERED: DICL1PAT6 TOP (07:17)
[2020-10-25] MEDS ORDERED: PANT40TA29 PO (07:17)
[2020-10-25] MEDS ORDERED: POTA1TAB14 PO (07:17)
[2020-10-25] MEDS ORDERED: NICO7PA TD (07:17)
[2020-10-25] MEDS ORDERED: PROAAER10 INH (07:18)
[2020-10-25] MEDS: IPRATROPIUM 0.5MG/ALBUTEROL 2.5MG INH SOL UD 3ML (DUONEB) NEB SCH (07:24)
--- NOTE | 2020-10-25 07:40 | DS.PDOC ---
Discharge Summary General Date of Admission Oct 11, 2020 at 20:55 Date of Discharge 10/25/2020 Attending Physician: CHARISSA MANDEL MD Discharge Summary PROCEDURES PERFORMED DURING STAY: None ADMITTING DIAGNOSES: Hyponatremia DISCHARGE DIAGNOSES: Hyponatremia Alcoholic hepatitis with hyperbilirubinemia Malnutrition with cachexia Physical deconditioning Chronic alcohol use disorder with dependence c/b alcohol withdrawal with delirium tremens. Presumed UTI COPD exacerbation Hypertension. Type 2 diabetes. Dyslipidemia. Bilateral knee osteoarthritis. History of generalized anxiety disorder. COMPLICATIONS/CHIEF COMPLAINT: Hyponatremia. HISTORY OF PRESENT ILLNESS: 59-year-old gentleman with long history of chronic alcohol use, hypertension, diabetes, dyslipidemia and degenerative arthritis who was found by his daughter sitting in the chair covered in feces and urine and was brought to the ED with profound weakness and generalized illness. HOSPITAL COURSE: In the ED he was found to be profoundly weak, jaundiced and on evaluation had a sodium level of 117 and later 125, transaminitis and hyerbilirubinemia to 12 with an elevated alcohol level. He was admitted for hyponatremia and started being treated with fluids, alcoholic hepatitis for which he received supportive treatment and his course was immediately c/b for acute severe alcohol withdrawal with delirium tremens (DTs). Nephrology was consulted for the hyponatremia that eventually improved and resolved with adequate hydration. He had significant chronic pain in his lower extremities from knee osteoarthropathy for which he had no showed to multiple orthopedic appointments that eventually improved with pain management. His transaminitis and hyperbilirubinemia slowly improved and his appetite finally started to improve. He had significant debility with physical deconditioning and worked diligently with PT/OT that eventually recommended rehabilitation before consideration of discharge home. Of ntoe, he also had a mild COPD exacerbation that was treated with a short course of steroids and nebulizer treatments with resolution and complained of dysuria for which he was treated for a presumed UTI with keflex that was stopped after 5d when final urine culture was negative. He is now being discharged to the [facility] for continued rehabilitation with recommendation to be evaluated by a GP within 7d of hospital discharge for continued observation of the slowly resolving cholestatic jaundice and alcoholic hepatitis. DISCHARGE MEDICATIONS: Please see below. ALLERGIES: Please see below. PHYSICAL EXAMINATION ON DISCHARGE: VITAL SIGNS: Please see below. General: Alert, Cooperative, No Acute Distress Eyes: Icteric sclerae, PERRLA, EOMI ENT: Atraumatic, Mucous membr. moist/pink with bitemporal wasting Neck: Supple, no JVD Chest: Clear to auscultation, Normal air movement Heart: Rate Normal, Regular Rhythm, Normal S1, Normal S2, no m/r/g Abdomen: Normal bowel sounds, Soft, NTND Extremities: no noted edema, WWP Skin Exam: Nl turgor and temperature, has a sacral decubitus ulcer, jaundice LABORATORY DATA: Please see below. IMAGING: CT A/P: FINDINGS: Lungs: The imaged portions of the lung bases are clear. The lungs were not fully imaged. Heart: No cardiomegaly or pericardial effusion is noted. There are coronary artery calcifications. Liver: The liver measures less than 40 Hounsfield units and the attenuation of the liver measures more than 10 Hounsfield units lower compared to the attenuation of the spleen, which is compatible with fatty liver infiltration. The liver is enlarged and in craniocaudal dimension and at the level of the right midclavicular line, the liver measures 23.9 cm. No liver lesion is identified. The contour of the liver is smooth. Gallbladder and bile ducts: No calcified gallstones are noted. No gallbladder wall thickening, pericholecystic fluid, or pericholecystic inflammatory changes are identified. No dilation of the bile ducts is noted. No calcified stones are seen in the common bile duct. Pancreas: Unremarkable. No ductal dilation. Spleen: There is a calcified granuloma in the spleen, which is unchanged compared to the prior CT abdomen and pelvis on 09/14/2014. No splenomegaly. Adrenal glands: Normal. No adrenal mass is noted. Kidneys and ureters: There is a 1 mm possible calculus in the right renal collecting system (image 66 of the axial series 201 and image 69 of the coronal series 202). No calculi are noted in the left kidney or ureters. No hydronephrosis or hydroureter is present. No renal lesion is identified with this unenhanced technique. Stomach and bowel: There is thickening of the wall of the stomach, which may be secondary to its decompressed state versus gastritis. The small bowel is unremarkable. There is colonic diverticulosis without evidence for diverticulitis. There is no evidence for a bowel obstruction, colitis, pneumatosis intestinalis, intussusception, volvulus, or perforated viscus. Appendix: No evidence for appendicitis. Intraperitoneal space: No free air. No ascites. No abscess. Retroperitoneal space: No fluid collection. No mass. Vasculature: The abdominal aorta is normal in caliber. There are extensive atherosclerotic calcifications. Lymph nodes: No enlarged lymph nodes. Urinary bladder: The distended urinary bladder is normal in appearance. No stones or masses are seen in the bladder. Reproductive: There are calcifications in the prostate gland. The seminal vesicles are unremarkable. A penile prosthesis was partially imaged. Bones/joints: There is no fracture or dislocation. No suspicious osteolytic or osteoblastic lesion. There are degenerative changes involving the lumbar spine. There is severe osteoarthritis of both hips and degenerative changes involving the pubic symphysis. Soft tissues: There has been a left inguinal hernia repair since the prior CT abdomen and pelvis on 09/14/2014. IMPRESSION: 1. Thickening of the wall of the stomach, which may be secondary to its decompressed state versus gastritis. 2. Colonic diverticulosis without evidence for diverticulitis. 3. Enlarged, fatty liver. 4. 1 mm possible nonobstructive calculus in the right renal collecting system. No hydronephrosis or hydroureter. CXR: The technique utilized in obtaining the radiograph has magnified the cardiac silhouette and accentuated the interstitial markings. The superior mediastinal structures are midline. The cardiac silhouette is unremarkable in size, shape, and position. The diaphragmatic surfaces of the lungs are regular, and the costophrenic angles are clear. The pulmonary hanley are clear. The imaged osseous structures are intact. IMPRESSION: There is no acute cardiopulmonary disease. Bilateral LE venous doppler US: There is no abnormal echogenic material seen within any of the visualized deep venous structures that would suggest acute thrombosis. Coaptation is unremarkable throughout. Doppler interrogation shows an expected response to respiratory variability and augmentation in the thigh. Compression techniques in the calf showed no abnormality. The color flow images show what appears to be a normal vascular pattern throughout the thigh. IMPRESSION: There is no ultrasonographic evidence of deep venous thrombosis involving any of the visualized deep venous structures of the bilateral lower extremity as described above. PROGNOSIS: Good with abstinence from alcohol ACTIVITY: As tolerated DIET: regular DISCHARGE PLAN: [facility] for rehab DISPOSITION: [facility] DISCHARGE INSTRUCTIONS: PCP/GP within 7d of hospital discharge. ITEMS TO FOLLOWUP ON ON OUTPATIENT: Alcoholic hepatitis Alcohol cessation Osteoarthritis DISCHARGE CONDITION: Stable TIME SPENT ON DISCHARGE: 40 minutes. Vital Signs/I&Os Vital Signs Date Time Temp Pulse Resp B/P (MAP) Pulse Ox O2 Delivery O2 Flow Rate FiO2 10/25/20 06:00 97.6 95 18 140/78 (98) 98 Room Air I&O- Last 24 Hours up to 6 AM 10/25/20 06:00 Intake Total 1680 ml Output Total 1940 ml Balance -260 ml Microbiology Microbiology 10/22/20 Urine Culture - Final, Complete Discharge Medications Scheduled Diclofenac Epolamine (Diclofenac Epolamine) 1.3% Patch, 1 PATCH TOP Q12H Folic Acid (Folic Acid) 1 Mg Tablet, 1 MG PO DAILY Multivitamins (Thera M Plus Tablet) 1 Each Tablet, 1 TAB PO DAILY Nicotine (Nicotine Patch) 7 Mg Patch.td24, 1 PATCH TD QHS Pantoprazole Sodium (Pantoprazole Sodium) 40 Mg Tablet.dr, 40 MG PO DAILY Potassium Chloride (Potassium Chloride) 20 Meq Tablet.er, 40 MEQ PO DAILY Scheduled PRN Albuterol Sulfate (Proair Hfa) 8.5 Gm Hfa.aer.ad, 2 PUFF INH Q4-6HP PRN for wheezing Tramadol HCl (Tramadol HCl) 50 Mg Tablet, 50 MG PO BIDP PRN for SEVERE PAIN (PS 8-10) Allergies Coded Allergies: TAPE (Verified Adverse Reaction, Intermediate, PLASTIC TAPE - "my skin bubbles and peels off", 10/11/20) povidone-iodine (Verified Adverse Reaction, Intermediate, burning, 10/11/20) soap (Verified Adverse Reaction, Intermediate, burning, 10/11/20) Contrast Media (Verified Adverse Reaction, Unknown, BLISTERS, 10/11/20) CHARISSA MANDEL MD Oct 25, 2020 07:40
[2020-10-25] MEDS: PANTOPRAZOLE 40MG TAB (PROTONIX) PO SCH (09:01)
[2020-10-25] MEDS: DICLOFENAC EPOLAMINE 1.3 % PATCH TOP SCH (09:01)
[2020-10-25] MEDS: MULTIVITAMINS/MINERALS THERAP 1 TAB PO SCH (09:01)
[2020-10-25] MEDS: FOLIC ACID 1 MG TAB PO SCH (09:01)
[2020-10-25] MEDS: traMADol 50 MG TAB PO SCH (09:02)
[2020-10-25] MEDS: TRIAMCINOLONE ACET 0.1% CREAM 80 GM TOP SCH (09:02)
[2020-10-25] MEDS: POTASSIUM CHLORIDE 10 MEQ SR TABLET PO SCH (09:02)
[2020-10-25] MEDS: CEPHALEXIN 250MG CAPSULE PO SCH (09:02)
== END 2020-10-25 11:36 | DRG 641 ==
LOC: M ED 14:24 → M ED INP 20:55 → M PCU 10-12 15:56 → M MSPAV 10-15 18:21
PROVIDERS: ADMIT Internal Medicine; ATTEND Internal Medicine
DX: E87.1 Hypo-osmolality and hyponatremia (principal); F10.131 Alcohol abuse with withdrawal delirium; E46 Unspecified protein-calorie malnutrition; J44.1 Chronic obstructive pulmonary disease with (acute) exacerbation; I10 Essential (primary) hypertension; E11.649 Type 2 diabetes mellitus with hypoglycemia without coma; E78.5 Hyperlipidemia, unspecified; M17.0 Bilateral primary osteoarthritis of knee; E55.9 Vitamin D deficiency, unspecified; F41.1 Generalized anxiety disorder; G47.33 Obstructive sleep apnea (adult) (pediatric); N52.9 Male erectile dysfunction, unspecified; F17.200 Nicotine dependence, unspecified, uncomplicated; R53.1 Weakness; K70.10 Alcoholic hepatitis without ascites; K57.90 Diverticulosis of intestine, part unspecified, without perforation or abscess without bleeding; R00.0 Tachycardia, unspecified; E86.0 Dehydration; D69.6 Thrombocytopenia, unspecified; L89.152 Pressure ulcer of sacral region, stage 2; Z88.8 Allergy status to other drugs, medicaments and biological substances; Z91.041 Radiographic dye allergy status; Z91.048 Other nonmedicinal substance allergy status; Z74.09 Other reduced mobility; Z85.828 Personal history of other malignant neoplasm of skin

== ENCOUNTER 2022-09-29 22:21 | Emergency (ER) | payer MEDICARE ==
[~2022-09-29 22:21] MED LIST changes: +DICL1PAT6 TOP; +NICO7PA TD; +PANT40TA29 PO; +POTA-298 PO; +PROAAER10 INH; +SIMV-253 PO; -ZOCO20TA PO
[2022-09-29 23:49] LABS: BASO # 0.1 10^3/uL (0.0-0.2); BASO % 0.7 % (0.0-1.0); EOS # 0.1 10^3/uL (0.0-0.5); EOS % 1.1 % (0.0-3.0); HEMATOCRIT 41.4 % (42.0-52.0); HEMOGLOBIN 14.4 g/dl (13.5-17.5); LYMPH % 30.7 % (24.0-44.0); MEAN CORPUSCULAR HGB CONC 34.8 g/dl (32.0-36.5); MEAN CORPUSCULAR VOLUME 97.9 fl (80.0-96.0); MONO # 0.7 10^3/uL (0.0-0.8); MONO % 7.6 % (2.0-8.0); NEUTROPHILS # 5.7 10^3/uL (1.5-8.5); NEUTROPHILS % 59.6 % (36.0-66.0); PLATELET COUNT, AUTOMATED 336 10^3/uL (150-450); RED BLOOD COUNT 4.23 10^6/uL (4.30-6.10); WHITE BLOOD COUNT 9.6 10^3/uL (4.0-10.0)
[2022-09-30 00:10] LABS: ACETAMINOPHEN LEVEL < 2.0 UG/ML (10.0-20.0); ALBUMIN 3.9 G/DL (3.2-5.2); ALKALINE PHOSPHATASE 89 U/L (46-116); ALT/SGPT 37 U/L (7.0-40); AST/SGOT 37 U/L (<34); BILIRUBIN,DIRECT 0.2 MG/DL (<0.4); BILIRUBIN,TOTAL 0.8 MG/DL (0.3-1.2); BLOOD UREA NITROGEN 11 MG/DL (9-23); CALCIUM LEVEL 8.5 MG/DL (8.3-10.6); CARBON DIOXIDE LEVEL 22 MMOL/L (20-31); CHLORIDE LEVEL 95 MMOL/L (98-107); CREATININE FOR GFR 0.62 MG/DL (0.70-1.30); GLOMERULAR FILTRATION RATE > 60.0 (>49); GLUCOSE, FASTING 75 MG/DL (74-106); POTASSIUM SERUM 4.3 MMOL/L (3.5-5.1); SALICYLATE LEVEL < 3.0 MG/DL (<30); SODIUM LEVEL 128 MMOL/L (136-145); TOTAL PROTEIN 7.2 G/DL (5.7-8.2)
[2022-09-30 00:13] LABS: THYROID STIMULATING HORMONE 2.669 uIU/ML (0.55-4.78)
[2022-09-30 00:30] LABS: AMPHETAMINES LEVEL URINE NEGATIVE (NEGATIVE); BARBITURATES URINE NEGATIVE (NEGATIVE); BENZODIAZEPINES URINE NEGATIVE (NEGATIVE); COCAINE METABOLITE URINE NEGATIVE (NEGATIVE); METHADONE URINE NEGATIVE (NEGATIVE); OPIATES URINE NEGATIVE (NEGATIVE); PHENCYCLIDINE URINE NEGATIVE (NEGATIVE)
[2022-09-30 00:31] LABS: CANNABINOIDS URINE NEGATIVE (NEGATIVE)
[2022-09-30 01:00] LABS: ETHYL ALCOHOL (ETHANOL) 0.346 % (0.000-0.010)
[2022-09-30 11:24] VITALS: BP 138/78; TEMP 98.6; O2SAT 100
== END 2022-09-30 11:30 | disposition home or self-care (01) ==
LOC: M ED 22:21
DX: F10.129 Alcohol abuse with intoxication, unspecified (principal); I10 Essential (primary) hypertension; J44.9 Chronic obstructive pulmonary disease, unspecified; F41.1 Generalized anxiety disorder; E55.9 Vitamin D deficiency, unspecified; G47.33 Obstructive sleep apnea (adult) (pediatric); Z91.041 Radiographic dye allergy status; Z88.8 Allergy status to other drugs, medicaments and biological substances; Z79.899 Other long term (current) drug therapy; Z79.51 Long term (current) use of inhaled steroids

== ENCOUNTER → 2022-10-25 | Outpatient (CLI) | payer MEDICARE ==
[~2022-10-25] MED LIST changes: +ALBU8.5H INH
[2022-10-26 11:04] LABS: BASO # 0.1 10^3/uL (0.0-0.2); BASO % 1.1 % (0.0-1.0); EOS # 0.1 10^3/uL (0.0-0.5); EOS % 1.3 % (0.0-3.0); HEMATOCRIT 41.1 % (42.0-52.0); HEMOGLOBIN 13.5 g/dl (13.5-17.5); LYMPH # 2.9 10^3/uL (1.5-5.0); LYMPH % 29.1 % (24.0-44.0); MEAN CORPUSCULAR HEMOGLOBIN 33.1 pg (27.0-33.0); MEAN CORPUSCULAR HGB CONC 32.8 g/dl (32.0-36.5); MEAN CORPUSCULAR VOLUME 100.7 fl (80.0-96.0); NEUTROPHILS # 5.3 10^3/uL (1.5-8.5); NEUTROPHILS % 52.2 % (36.0-66.0); PLATELET COUNT, AUTOMATED 377 10^3/uL (150-450); RED BLOOD COUNT 4.08 10^6/uL (4.30-6.10); WHITE BLOOD COUNT 10.1 10^3/uL (4.0-10.0)
[2022-10-26 11:24] LABS: CREATININE, URINE 150.6 MG/DL; MALB URINE SIEMENS < 3.0 MG/L; MAU/CREAT RATIO 1.9 MCG/MG (0.0-30.0)
[2022-10-26 11:35] LABS: ALBUMIN 3.8 G/DL (3.2-5.2); ALKALINE PHOSPHATASE 92 U/L (46-116); ALT/SGPT 50 U/L (7.0-40); AST/SGOT 34 U/L (<34); BILIRUBIN,TOTAL 0.5 MG/DL (0.3-1.2); BLOOD UREA NITROGEN 18 MG/DL (9-23); CALCIUM LEVEL 9.1 MG/DL (8.3-10.6); CARBON DIOXIDE LEVEL 23 MMOL/L (20-31); CHLORIDE LEVEL 105 MMOL/L (98-107); CHOLESTEROL LEVEL 166 MG/DL (<200); CHOLESTEROL RISK RATIO 3.09 (<5); FREE T4 1.15 NG/DL (0.89-1.76); GLOMERULAR FILTRATION RATE > 60.0 (>49); GLUCOSE, FASTING 83 MG/DL (74-106); HDL CHOLESTEROL 53.7 MG/DL (>40); HEMOGLOBIN A1c 5.4 % (4.0-6.0); LDL CHOLESTEROL 88.5 MG/DL (<100); NON-HDL-C 112.3 MG/DL; POTASSIUM SERUM 5.5 MMOL/L (3.5-5.1); SODIUM LEVEL 137 MMOL/L (136-145); THYROID STIMULATING HORMONE 2.386 uIU/ML (0.55-4.78); TOTAL 25(OH) VITAMIN D 8.7 NG/ML (20.0-100.0); TOTAL PROTEIN 7.1 G/DL (5.7-8.2); TRIGLYCERIDES LEVEL 119 MG/DL (<150)
[2022-10-26 11:38] LABS: MONO # 1.6 10^3/uL (0.0-0.8)
== END ==
LOC: M PLAIMG 16:38
PROVIDERS: ATTEND Nurse Practitioner Family
DX: J44.9 Chronic obstructive pulmonary disease, unspecified (principal); E11.9 Type 2 diabetes mellitus without complications; I10 Essential (primary) hypertension; E78.5 Hyperlipidemia, unspecified; E55.9 Vitamin D deficiency, unspecified; F41.1 Generalized anxiety disorder; Z12.5 Encounter for screening for malignant neoplasm of prostate

== ENCOUNTER 2022-10-30 01:47 | Emergency (ER) | payer MEDICARE ==
[~2022-10-30] VITALS: Ht 172.7 cm; Wt 65.0 kg
[~2022-10-30 01:47] MED LIST changes: -ALBU8.5H INH
[2022-10-30] MEDS ORDERED: NS 1,000 ML IV ONE (01:55)
[2022-10-30 02:40] LABS: BASO # 0.1 10^3/uL (0.0-0.2); BASO % 1.7 % (0.0-1.0); EOS # 0.2 10^3/uL (0.0-0.5); EOS % 1.8 % (0.0-3.0); HEMATOCRIT 45.6 % (42.0-52.0); HEMOGLOBIN 15.6 g/dl (13.5-17.5); LYMPH % 47.6 % (24.0-44.0); MEAN CORPUSCULAR HEMOGLOBIN 33.7 pg (27.0-33.0); MEAN CORPUSCULAR HGB CONC 34.2 g/dl (32.0-36.5); MEAN CORPUSCULAR VOLUME 98.5 fl (80.0-96.0); MONO # 0.7 10^3/uL (0.0-0.8); MONO % 8.8 % (2.0-8.0); NEUTROPHILS # 3.4 10^3/uL (1.5-8.5); NEUTROPHILS % 39.9 % (36.0-66.0); PLATELET COUNT, AUTOMATED 498 10^3/uL (150-450); RED BLOOD COUNT 4.63 10^6/uL (4.30-6.10); WHITE BLOOD COUNT 8.4 10^3/uL (4.0-10.0)
[2022-10-30 02:54] LABS: AMPHETAMINES LEVEL URINE NEGATIVE (NEGATIVE); BARBITURATES URINE NEGATIVE (NEGATIVE); BENZODIAZEPINES URINE NEGATIVE (NEGATIVE); CANNABINOIDS URINE NEGATIVE (NEGATIVE); COCAINE METABOLITE URINE NEGATIVE (NEGATIVE); METHADONE URINE NEGATIVE (NEGATIVE); OPIATES URINE NEGATIVE (NEGATIVE); PHENCYCLIDINE URINE NEGATIVE (NEGATIVE)
[2022-10-30 03:11] LABS: ACETAMINOPHEN LEVEL < 2.0 UG/ML (10.0-20.0); ALBUMIN 4.1 G/DL (3.2-5.2); ALKALINE PHOSPHATASE 104 U/L (46-116); ALT/SGPT 40 U/L (7.0-40); AST/SGOT 48 U/L (<34); BILIRUBIN,DIRECT 0.1 MG/DL (<0.4); BILIRUBIN,TOTAL 0.4 MG/DL (0.3-1.2); BLOOD UREA NITROGEN 7 MG/DL (9-23); CALCIUM LEVEL 8.3 MG/DL (8.3-10.6); CARBON DIOXIDE LEVEL 20 MMOL/L (20-31); CHLORIDE LEVEL 100 MMOL/L (98-107); CREATININE FOR GFR 0.45 MG/DL (0.70-1.30); GLOMERULAR FILTRATION RATE > 60.0 (>49); GLUCOSE, FASTING 87 MG/DL (74-106); POTASSIUM SERUM 5.3 MMOL/L (3.5-5.1); SALICYLATE LEVEL < 3.0 MG/DL (<30); SODIUM LEVEL 134 MMOL/L (136-145); TOTAL PROTEIN 7.7 G/DL (5.7-8.2)
[2022-10-30 03:13] LABS: THYROID STIMULATING HORMONE 2.461 uIU/ML (0.55-4.78)
[2022-10-30 03:50] LABS: CPK CREATINE PHOSPHOKINASE 89 U/L (46-171)
[2022-10-30 04:02] LABS: ETHYL ALCOHOL (ETHANOL) 0.385 % (0.000-0.010)
[2022-10-30] MEDS ORDERED: LORazepam 2 MG TAB PO PRN (14:25)
[2022-10-30] MEDS ORDERED: ALBU8.5H INH (16:21)
[2022-10-30] MEDS ORDERED: HOME MED LIST COMPLETE! XX SCH (16:25)
[2022-10-30] MEDS ORDERED: ALBUTEROL 90 MCG/ACT 8GM HFA INHALER INH PRN (16:50)
[2022-10-30] MEDS ORDERED: OXAZEPAM 15MG CAP PO ONE (21:05)
[2022-10-30] MEDS: THIAMINE 100 MG TAB PO SCH (21:29)
[2022-10-31 06:42] VITALS: BP 177/100
[2022-10-31] MEDS: THIAMINE 100 MG TAB PO SCH (08:14)
[2022-10-31] MEDS ORDERED: CHLORTHALIDONE 12.5MG PER 1/2 TABLET PO ONE (08:30)
[2022-10-31] MEDS ORDERED: FOLIC ACID 1MG TAB PO SCH (09:00)
[2022-10-31] MEDS ORDERED: MULTIVITAMINS/MINERALS THERAP 1 TAB PO SCH (09:00)
[2022-10-31] MEDS ORDERED: GABAPENTIN 100 MG CAP PO SCH (09:00)
[2022-10-31] MEDS ORDERED: IBUPROFEN 400MG TAB PO ONE (09:45)
[2022-10-31 12:18] VITALS: BP 158/85; TEMP 98; O2SAT 97
== END 2022-10-31 12:25 | disposition home or self-care (01) ==
LOC: M ED 01:47
DX: F10.94 Alcohol use, unspecified with alcohol-induced mood disorder (principal); J44.9 Chronic obstructive pulmonary disease, unspecified; F17.290 Nicotine dependence, other tobacco product, uncomplicated; Z91.041 Radiographic dye allergy status

== ENCOUNTER 2023-05-07 15:42 | Emergency (ER) | payer MEDICARE ==
[~2023-05-07] VITALS: Ht 172.7 cm; Wt 70.9 kg
[~2023-05-07 15:42] MED LIST changes: +ALBU8.5H INH
[2023-05-07 16:17] VITALS: BP 155/76; TEMP 97.1; O2SAT 97
== END 2023-05-07 17:07 | disposition left against medical advice (07) ==
LOC: EDBD 15:42 → M ED 15:42
DX: F10.120 Alcohol abuse with intoxication, uncomplicated (principal); J44.9 Chronic obstructive pulmonary disease, unspecified; I10 Essential (primary) hypertension; E55.9 Vitamin D deficiency, unspecified; F41.1 Generalized anxiety disorder; M19.90 Unspecified osteoarthritis, unspecified site; G47.30 Sleep apnea, unspecified

== ENCOUNTER → 2024-07-10 | Outpatient (REF) | payer MEDICARE, MEDICAID ==
[~2024-07-10] MED LIST changes: +AMLO-751 PO; -AMLO10TA PO; -FLOM0.4C39 PO; +TAMS-18 PO
[2024-07-10 18:46] LABS: ALBUMIN 3.6 G/DL (3.2-5.2); ALKALINE PHOSPHATASE 104 U/L (40-129); ALT/SGPT 16 U/L (7.0-40); AST/SGOT 17 U/L (<34); BILIRUBIN,TOTAL 0.7 MG/DL (0.3-1.2); BLOOD UREA NITROGEN 15 MG/DL (9-23); CALCIUM LEVEL 9.2 MG/DL (8.3-10.6); CARBON DIOXIDE LEVEL 26 MMOL/L (20-31); CHLORIDE LEVEL 100 MMOL/L (98-107); CREATININE FOR GFR 0.63 MG/DL (0.70-1.30); GLOMERULAR FILTRATION RATE > 90.0 (>49); GLUCOSE, FASTING 115 MG/DL (74-106); POTASSIUM SERUM 4.9 MMOL/L (3.5-5.1); SODIUM LEVEL 135 MMOL/L (136-145); TOTAL PROTEIN 7.6 G/DL (5.7-8.2)
[2024-07-10 18:54] LABS: BASO # 0.1 10^3/uL (0.0-0.2); BASO % 0.6 % (0.0-1.0); EOS % 0.3 % (0.0-3.0); HEMATOCRIT 42.6 % (42.0-52.0); HEMOGLOBIN 14.3 g/dl (13.5-17.5); LYMPH % 21.6 % (24.0-44.0); MEAN CORPUSCULAR HEMOGLOBIN 32.6 pg (27.0-33.0); MEAN CORPUSCULAR HGB CONC 33.6 g/dl (32.0-36.5); MEAN CORPUSCULAR VOLUME 97.3 fl (80.0-96.0); MONO # 1.1 10^3/uL (0.0-0.8); MONO % 11.5 % (2.0-8.0); NEUTROPHILS # 6.1 10^3/uL (1.5-8.5); NEUTROPHILS % 65.7 % (36.0-66.0); PLATELET COUNT, AUTOMATED 379 10^3/uL (150-450); RED BLOOD COUNT 4.38 10^6/uL (4.30-6.10); WHITE BLOOD COUNT 9.3 10^3/uL (4.0-10.0)
== END ==
LOC: M LAB REF 17:21
PROVIDERS: ATTEND Physician Assistant
DX: R60.0 Localized edema (principal)